=== PATIENT | female | born 1950 | race Caucasian/White ===

== ENCOUNTER 2020-09-06 11:12 | Outpatient (REF) | payer MEDICARE, SELFPAY ==
[2020-09-06 14:27] LABS: Estimated Average Glucose 108 mg/dL; Hemoglobin A1c % 5.4 %
[2020-09-06 14:49] LABS: Alanine Aminotransferase 24 U/L (0-31); Albumin Level 3.9 g/dL (3.5-5.0); Alkaline Phosphatase 105 U/L (39-117); Anion Gap 14 (12-20); Aspartate Amino Transferase 19 U/L (5-31); Bilirubin Total 0.7 mg/dL (0.0-1.0); Blood Urea Nitrogen 20 mg/dL (9-16); Calcium 8.5 mg/dL (8.4-10.2); Carbon Dioxide 25 mmol/L (22-29); Chloride 106 mmol/L (96-108); Cholesterol 147 mg/dL; Estimated Glomerular Filt Rate > 60; Glucose Fasting 99 mg/dL (60-99); HDL Cholesterol 54 mg/dL; LDL Cholesterol Calculated 64 mg/dl; Potassium 4.9 mmol/L (3.3-5.1); Sodium 140 mmol/L (135-145); Total Protein 6.4 g/dL (6.5-8.0); Triglycerides 147 mg/dL
[2020-09-06 15:01] LABS: Creatinine Urine 97.51 mg/dL; Microalbum/Creatinine Ratio Ur 12.3 ug/mg cr
[2020-09-06 15:10] LABS: TSH reflex Free T4 1.31 uIU/mL (0.32-4.0)
== END 2020-09-06 11:13 | disposition home or self-care (01) ==
LOC: HO.10HDL 11:12
PROVIDERS: Visit Provider Nurse Practitioner Family
DX: I10 Essential (primary) hypertension (principal); R73.01 Impaired fasting glucose
CPT/HCPCS: 36415; 80053; 80061; 82043; 83036; 84443

== ENCOUNTER 2020-10-19 11:35 | Emergency (ER) | payer MEDICARE, SELFPAY ==
--- NOTE | ~2020-10-19 | XR_ITS ---
EXAMINATION: XR CHEST CLINICAL INFORMATION: Cough. Likely Covid infection. COMPARISON: Previous chest x-ray April 2006 TECHNIQUE: Frontal view of the chest was obtained. FINDINGS: The cardiac and mediastinal contours are normal. The lungs are clear. There is no pleural effusion or pneumothorax. There are degenerative changes of the spine. XR/XR chest 1V IMPRESSION: No evidence for acute disease in the chest.
[2020-10-19 11:44] VITALS: BP 114/58; BP 132/90; PULSE 78; PULSE 81; RESP 18; TEMP 37.7; O2SAT 93; BMI 41.5
--- NOTE | 2020-10-19 12:08 | ED.GENADULT ---
HPI - General Adult General Chief complaint: General Medical Stated complaint: COUGH,WEAKNESS,FATIGUE,RECENT COVID VACC Time Seen by Provider: 10/19/20 12:08 Source: patient Mode of arrival: EMS Limitations: no limitations History of Present Illness HPI narrative: Patient with extreme fatigue and cough. Just feels so weak Onset (ago): day(s) Severity: moderate Relieving factors: none Associated symptoms: cough, fever/chills, nausea/vomiting and weakness Related Data Home Medications Medication Instructions Recorded Confirmed flu vacc [id number](65yr up)-PF 240 ml IM 06/07/20 10/05/20 mcg/0.7 mL intramuscular syringe Previous Rx's Medication Instructions Recorded atenolol 50 mg tablet 50 mg PO DAILY 90 Days #90 tab 08/10/20 atorvastatin 10 mg tablet 10 mg PO DAILY #90 tab 08/10/20 bupropion HCl 300 mg 24 hr tablet, 300 mg PO DAILY #90 tab 08/10/20 extended release fluticasone 500 mcg-salmeterol 50 1 inh INHALATION BID 90 Days #180 08/10/20 mcg/dose blistr powdr for units inhalation gabapentin 100 mg capsule 200 mg PO TID 90 Days #540 cap 08/10/20 lisinopril 10 mg tablet 10 mg PO DAILY #90 tab 08/10/20 umeclidinium 62.5 mcg/actuation 1 inh INHALATION DAILY 90 Days #30 08/10/20 blister powder for inhalation ea Allergies Allergy/AdvReac Type Severity Reaction Status Date / Time No Known Allergies Allergy Verified 10/19/20 11:44 Review of Systems Constitutional: Constitutional: Reports no additional constitutional complaints Eyes: Eyes: Reports no additional eye complaints ENT: Denies dizziness Cardiovascular: Cardiovascular: Reports no additional cardiovascular complaints Respiratory: Respiratory: Reports as per HPI Gastrointestinal: Gastrointestinal: Reports no additional gastrointestinal complaints Genitourinary: Genitourinary: Reports no additional female genitourinary complaints Musculoskeletal: Musculoskeletal: Reports no additional musculoskeletal complaints Integumentary/Breasts: Skin/Breast: Denies rash Neurologic: Reports system reviewed and no additional complaints, except as documented, Denies dizziness and Denies Sensory deficit (Neuro) Psychiatric: Psychiatric: Denies anxiety PMFSH Past Medical History Medical History COPD (chronic obstructive pulmonary disease) Surgical History History of total hysterectomy Hx of cholecystectomy Family History Family History Father No problems noted. Mother No problems noted. Sister No problems noted. Sister No problems noted. Son No problems noted. Daughter No problems noted. Social History Social History Alcohol intake: never Smoking Status: Never smoker Use of substances other than those prescribed or required for medical reasons: No Advance Directives: No Advance Directives Information Provided: Yes Physical Exam Vital Signs: Vital Signs: Last Vital Signs Temp 100.6 F H 10/19/20 14:00 Pulse 71 10/19/20 14:00 Resp 16 10/19/20 14:00 BP 104/79 10/19/20 14:00 Pulse Ox 93 10/19/20 14:00 Body Mass Index 41.5 Const: Nutritional Appearance: obese Orientation/consciousness: oriented to person and patient oriented x3 Limitations: no limitations HENMT: Head: Yes normal to inspection Ears: external ears normal General nose exam: Normal external nose present Mouth: Normal oral and palatal mucosa present and oropharynx normal Throat: Yes posterior oropharynx normal Eyes: General: appearance normal, both eyes and all related structures Neck: Other: supple Neck: Yes normal visual inspection Chest: Chest palpation & inspection: normal inspection of the chest Resp: Auscultation: clear to auscultation bilaterally Cardio: Jugular venous distension: no JVD Rate: regular rate Rhythm: regular rhythm Heart sounds: S1 normal heart sound present and S2 normal heart sound present GI: Inspection: Yes normal to inspection Palpation (GI): Soft to palpation, nontender and No hepatosplenomegaly present Auscultation: normal bowel sounds : General: Yes no CVA tenderness Back/Spine/Pelvis: Back: no CVA tenderness Skin: General skin exam: no rashes or lesions noted Neuro: General: oriented to person and patient oriented x3 Cranial nerves: Yes CN's II-XII intact bilaterally Motor exam (neuro): 5/5 motor strength present throughout Sensory Exam: No Sensory deficit (Neuro) Extrem: General: Yes normal to inspection Psych: Appearance: grossly normal Course Course Course Narrative: resting comfortably positive COVID, not hypoxic, xray negative Medical Decision Making MDM Narrative Medical decision making narrative: symptoms and testing consistent with COVID Lab Data Result diagrams: 10/19/20 13:34 10/19/20 13:34 Labs: Lab Results 10/19/20 10/19/20 10/19/20 Range/Units 13:34 13:34 13:36 WBC 3.6 L (4.8-10.8) X10*3/uL RBC 5.07 (4.20-5.50) X10*6/uL Hgb 14.2 (12.0-16.0) g/dl Hct 42.7 (37-47) % MCV 84.2 (80-98) fL MCH 28.0 (27.0-33.0) pg MCHC 33.3 (31.0-35.0) g/dl RDW 13.6 (11.0-16.0) % Plt Count 101 L (160-400) X10*3/uL MPV 11.7 (9.4-12.3) fL Immature Gran % (Auto) 1.9 H (0.0-0.4) % Neut % (Auto) 79.1 H (45-73) % Lymph % (Auto) 14.3 L (20-40) % [place] % (Auto) 4.4 (2-11) % Eos % (Auto) 0.0 (0-4) % Baso % (Auto) 0.3 (0-2) % Lymph # (Auto) 0.5 L (1.2-4.9) X10*3/uL [place] # (Auto) 0.2 (0.1-1.2) X10*3/uL Eos # (Auto) 0.0 (0.0-0.4) X10*3/uL Baso # (Auto) 0.0 (0.0-0.2) X10*3/uL Abs Immat Gran (auto) 0.07 H (0.00-0.03) X10*3/uL Absolute Neuts (auto) 2.9 (2.0-8.3) X10*3/uL Absolute Nucleated RBC 0.000 (0.0-0.012) X10*3/uL Nucleated RBC % (auto) 0.0 (0.0-0.2) /100WBC Smear Tech's Comments VERIFIED Sodium 133 L (135-145) mmol/L Potassium 4.2 (3.3-5.1) mmol/L Chloride 99 (96-108) mmol/L Carbon Dioxide 26 (22-29) mmol/L Anion Gap 12 (12-20) BUN 25 H (9-16) mg/dL Creatinine 0.79 (0.5-1.4) mg/dL Estim Creat Clear Calc 80.2 Estimated GFR > 60 Random Glucose 99 (60-115) mg/dL Calcium 7.8 L D (8.4-10.2) mg/dL Coronavirus (PCR) POSITIVE A (Negative) Influenza Type A (PCR) NEGATIVE (Negative) Influenza Type B (PCR) NEGATIVE (Negative) RSV RNA Qual (PCR) NEGATIVE (Negative) Discharge Plan Discharge Clinical Impression: 2019 novel coronavirus disease (COVID-19) Patient Disposition: Home, Self-Care Instructions: COVID-19 (Coronavirus Disease 2019) (ED) Additional Instructions: fluids as tolerated Prescriptions: No Action fluticasone propion-salmeterol [Advair Diskus] 500-50 mcg/dose blister with device 1 inh inhalation BID 90 Days Qty: 180 RF: 4 atenolol 50 mg tablet 50 mg PO DAILY 90 Days Qty: 90 RF: 2 atorvastatin 10 mg tablet 10 mg PO DAILY Qty: 90 RF: 1 bupropion HCl 300 mg tablet extended release 24 hr 300 mg PO DAILY Qty: 90 RF: 1 gabapentin 100 mg capsule 200 mg PO TID 90 Days Qty: 540 RF: 1 lisinopril 10 mg tablet 10 mg PO DAILY Qty: 90 RF: 1 Incruse Ellipta 62.5 mcg/actuation blister with device 1 inh inhalation DAILY 90 Days Qty: 30 RF: 5 Fluzone HighDose Quad 20-21 PF 240 mcg/0.7 mL syringe IM RF: 0 Referrals: Mckinley Hodges, [employer]PER[employer] SUPERVISOR-BC [Primary Care Provider] - 2 days
[2020-10-19 14:00] VITALS: BP 104/79; PULSE 71; RESP 16; TEMP 38.1; O2SAT 93
[2020-10-19 14:08] LABS: Basophils Percent Auto 0.3 % (0-2); Hematocrit 42.7 % (37-47); Hemoglobin 14.2 g/dl (12.0-16.0); Imm Gran Abs Auto 0.07 X10*3/uL (0.00-0.03); Imm Gran Pct Auto 1.9 % (0.0-0.4); Lymphocytes Absolute Auto 0.5 X10*3/uL (1.2-4.9); Lymphocytes Percent Auto 14.3 % (20-40); MANUAL DIFF FLAG SCAN; Mean Corpuscular HGB Conc 33.3 g/dl (31.0-35.0); Mean Corpuscular Volume 84.2 fL (80-98); Mean Platelet Volume 11.7 fL (9.4-12.3); Monocytes Absolute Auto 0.2 X10*3/uL (0.1-1.2); Monocytes Percent Auto 4.4 % (2-11); Neutrophils Absolute Auto 2.9 X10*3/uL (2.0-8.3); Neutrophils Percent Auto 79.1 % (45-73); Platelet Count 101 X10*3/uL (160-400); Red Blood Count 5.07 X10*6/uL (4.20-5.50); Red Cell Distribution Width 13.6 % (11.0-16.0); SCAN SMEAR FLAG 1; White Blood Count 3.6 X10*3/uL (4.8-10.8)
[2020-10-19 14:23] LABS: Anion Gap 12 (12-20); Blood Urea Nitrogen 25 mg/dL (9-16); Calcium 7.8 mg/dL (8.4-10.2); Carbon Dioxide 26 mmol/L (22-29); Chloride 99 mmol/L (96-108); Creatinine Clr Calc Pharmacy 80.2; Estimated Glomerular Filt Rate > 60; Glucose Random 99 mg/dL (60-115); Potassium 4.2 mmol/L (3.3-5.1); Sodium 133 mmol/L (135-145)
[2020-10-19 14:42] LABS: SLIDE REVIEW VERIFIED
[2020-10-19 14:55] LABS: Influenza A PCR NEGATIVE (Negative); Influenza B PCR NEGATIVE (Negative); Resp Syncy Virus RNA Qual PCR NEGATIVE (Negative); SARS COV2 PCR INHOUSE POSITIVE (Negative)
== END 2020-10-19 15:59 | disposition home or self-care (01) ==
PROVIDERS: Emergency Provider Emergency Medicine; PCP Nurse Practitioner Family
DX: U07.1 COVID-19 (principal); J44.9 Chronic obstructive pulmonary disease, unspecified
CPT/HCPCS: 0241U; 36415; 71045; 80048; 85025; 99283; 99284

== ENCOUNTER 2021-02-14 10:00 | Outpatient (REF) | payer MEDICARE, SELFPAY ==
--- NOTE | ~2021-02-14 | MM_ITS ---
EXAMINATION: MM SCREENING DIGITAL BREAST TOMOSYNTHESIS, BILATERAL CLINICAL INFORMATION: Screening. Asymptomatic. The lifetime risk of breast cancer based on the Tyrer-Cuzick Model is 5%. COMPARISON: Mammography: 09/18/2018, 02/12/2017, 12/08/2014 TECHNIQUE: Digital breast tomosynthesis is performed in both the craniocaudal and mediolateral oblique views along with computer-aided detection (CAD). Synthesized 2D images are generated from the tomosynthesis. Additional exaggerated left CC and left MLO views are provided. FINDINGS: The breasts are almost entirely fatty (ACR BI-RADS breast composition Category a). There are no significant masses, abnormal calcifications, or other abnormalities. Background stromal markings are stable. The axilla are unremarkable. There are some dermal lesions overlying the posterior inferior left breast and two small dermal lesions overlying the posterior right breast. MM/MM tomosynthesis screening BI IMPRESSION: No mammographic evidence of malignancy. ASSESSMENT: BI-RADS 2: Benign RECOMMENDATION: Routine annual mammography screening. This patient's information was entered into a reminder system with a target due date for their next mammogram.
== END 2021-02-14 10:01 | disposition home or self-care (01) ==
LOC: HO.MAMMO 10:00
PROVIDERS: PCP Nurse Practitioner Family; Visit Provider Nurse Practitioner Family
DX: Z12.31 Encounter for screening mammogram for malignant neoplasm of breast (principal)
CPT/HCPCS: 77063; 77067

== ENCOUNTER 2021-03-07 09:17 | Outpatient (REF) | payer MEDICARE, SELFPAY ==
[2021-03-07 10:55] LABS: Alanine Aminotransferase 22 U/L (0-31); Albumin Level 3.8 g/dL (3.5-5.0); Alkaline Phosphatase 90 U/L (39-117); Anion Gap 13 (12-20); Aspartate Amino Transferase 16 U/L (5-31); Bilirubin Total 0.5 mg/dL (0.0-1.0); Blood Urea Nitrogen 18 mg/dL (9-16); Carbon Dioxide 26 mmol/L (22-29); Chloride 107 mmol/L (96-108); Cholesterol 146 mg/dL; Estimated Glomerular Filt Rate > 60; Glucose Fasting 105 mg/dL (60-99); HDL Cholesterol 60 mg/dL; LDL Cholesterol Calculated 61 mg/dl; Potassium 4.6 mmol/L (3.3-5.1); Sodium 141 mmol/L (135-145); Total Protein 6.3 g/dL (6.5-8.0); Triglycerides 127 mg/dL
[2021-03-07 11:03] LABS: Glucose Urine UA NEG (NEG); Leukocyte Esterase Urine NEG (NEG); Nitrite Urine NEG (NEG); PH 5.5 (5.0-8.0); Urine Blood NEG (NEG); Urine Ketones NEG (NEG); Urine Protein NEG (NEG-TRACE)
[2021-03-07 11:11] LABS: Appearance Urine HAZY; Color Urine YELLOW
[2021-03-07 11:18] LABS: TSH reflex Free T4 3.03 uIU/mL (0.32-4.0)
== END 2021-03-07 09:18 | disposition home or self-care (01) ==
LOC: HO.10HDL 09:17
PROVIDERS: Visit Provider Nurse Practitioner Family
DX: Z00.00 Encounter for general adult medical examination without abnormal findings (principal)
CPT/HCPCS: 36415; 80053; 80061; 81003; 84443

== ENCOUNTER 2021-04-28 10:14 | Outpatient (REF) | payer MEDICARE, SELFPAY ==
--- NOTE | ~2021-04-28 | MR_ITS ---
EXAMINATION: MRI ANKLE WITHOUT CONTRAST, RIGHT CLINICAL INFORMATION: Right Achilles strain. COMPARISON: None. TECHNIQUE: MRI without contrast is performed on the right ankle. FINDINGS: The Achilles tendon is diffusely thickened with surrounding edema which extends throughout Kager's fat pad. At the calcaneal insertion, there is minimal interstitial/undersurface partial tearing, as well as retrocalcaneal bursitis and an insertional enthesophyte. There is irregular longitudinal partial-thickness split tearing of the peroneal brevis tendon posterior to the distal fibula. Minimal interstitial tearing extends distally, superficial to a prominent lateral osteophyte of the distal calcaneus, to the insertion onto the base of the 5th metatarsal. The peroneal longus tendon appears intact. Peroneal tenosynovitis. The posterior tibialis tendon, flexor and extensor tendons appear otherwise intact. There is thickening of the plantar fascia with a large heel spur. No tear. The anterior talofibular ligament is attenuated likely representing a remote sprain. Ankle ligaments are otherwise unremarkable. There are mild degenerative changes of the tibiotalar joint including a small subchondral cyst of the tibia anteriorly and small osteophytes. No significant joint effusion. [id number] degenerative changes across the Lisfranc joints, particularly the 1st and 2nd TMT joints and dorsally at the junction of the 2nd and 3rd metatarsal bases. MR/MR ankle RT wo con IMPRESSION: Moderate chronic Achilles tendinopathy with peritendinitis, minimal interstitial/undersurface partial tearing at the calcaneal insertion with retrocalcaneal bursitis. Longitudinal partial tearing of the peroneal brevis tendon with tenosynovitis. Degenerative changes as described, most prominent at the 1st and 2nd TMT joints and at the dorsal junction of the 2nd and 3rd metatarsal bases. Chronic plantar fasciitis with a large heel spur.
== END 2021-04-28 10:15 | disposition home or self-care (01) ==
LOC: HO.MRI 10:14
PROVIDERS: PCP Nurse Practitioner Family; Visit Provider Nurse Practitioner Family
DX: S86.011A Strain of right Achilles tendon, initial encounter (principal)
CPT/HCPCS: 73721

== ENCOUNTER 2021-09-06 09:58 | Outpatient (REF) | payer MEDICARE, SELFPAY ==
[2021-09-06 13:50] LABS: Appearance Urine CLEAR; Color Urine YELLOW; Glucose Urine UA NEG (NEG); Leukocyte Esterase Urine NEG (NEG); Nitrite Urine NEG (NEG); Specific Gravity - Urine 1.025 (1.005-1.025); Urine Blood NEG (NEG); Urine Ketones NEG (NEG); Urine Protein NEG (NEG-TRACE)
[2021-09-06 13:53] LABS: Alanine Aminotransferase 20 U/L (0-31); Albumin Level 3.9 g/dL (3.5-5.0); Alkaline Phosphatase 107 U/L (39-117); Anion Gap 12 (12-20); Aspartate Amino Transferase 17 U/L (5-31); Bilirubin Total 0.4 mg/dL (0.0-1.0); Blood Urea Nitrogen 19 mg/dL (9-16); Calcium 9.1 mg/dL (8.4-10.2); Carbon Dioxide 26 mmol/L (22-29); Chloride 105 mmol/L (96-108); Cholesterol 148 mg/dL; Estimated Glomerular Filt Rate > 60; Glucose Fasting 120 mg/dL (60-99); HDL Cholesterol 48 mg/dL; LDL Cholesterol Calculated 70 mg/dl; Potassium 4.3 mmol/L (3.3-5.1); Sodium 139 mmol/L (135-145); Total Protein 6.4 g/dL (6.5-8.0); Triglycerides 153 mg/dL
[2021-09-06 14:16] LABS: TSH reflex Free T4 1.94 uIU/mL (0.32-4.0)
== END 2021-09-06 09:59 | disposition home or self-care (01) ==
LOC: HO.10HDL 09:58
PROVIDERS: Visit Provider Nurse Practitioner Family
DX: I10 Essential (primary) hypertension (principal); R73.01 Impaired fasting glucose
CPT/HCPCS: 36415; 80053; 80061; 81003; 84443

== ENCOUNTER 2022-02-15 08:26 | Outpatient (REF) | payer MEDICARE, SELFPAY ==
--- NOTE | ~2022-02-15 | MM_ITS ---
EXAMINATION: MM SCREENING DIGITAL BREAST TOMOSYNTHESIS, BILATERAL CLINICAL INFORMATION: Screening. Asymptomatic. Family history breast cancer, mother. The lifetime risk of breast cancer based on the Tyrer-Cuzick Model is 6%. COMPARISON: Mammography: 02/14/2021, 09/18/2018, 02/12/2017 TECHNIQUE: Digital breast tomosynthesis is performed in both the craniocaudal and mediolateral oblique views along with computer-aided detection (CAD). Synthesized 2D images are generated from the tomosynthesis. Additional left CC view is provided. FINDINGS: The breasts are almost entirely fatty (ACR BI-RADS breast composition Category a). Stromal markings are normal. No interval mass or developing density or architectural abnormality. No abnormal calcifications. The axilla are unremarkable. No significant changes. MM/MM tomosynthesis screening BI IMPRESSION: No mammographic evidence of malignancy. ASSESSMENT: BI-RADS 1: Negative RECOMMENDATION: Routine annual mammography screening. This patient's information was entered into a reminder system with a target due date for their next mammogram.
--- NOTE | ~2022-02-15 | MM_ITS ---
EXAMINATION: BONE DENSITOMETRY CLINICAL INDICATION: Menopause. COMPARISON: Baseline BD dated 11/02/2008. TECHNIQUE: Using a [employer] DXA System (software version: 13.1) manufactured by [employer], dual-energy x-ray absorptiometry was performed of the lumbar spine and left hip. The images are of good technical quality. Summary results are attached. FINDINGS: AP SPINE L1-L2 (excluding L3 and L4): The data of L1-L4 has been changed to exclude the L3 and L4 vertebral bodies, because degenerative changes at these levels may cause overestimation of lumbar spine density. Current: BMD 1.179 g/cm2, Z-score 0.6, T-score 0.1, normal, 1.3% increase from baseline (<5% change is not significant). Baseline: BMD 1.164 g/cm2. LEFT FEMUR, NECK: Current: BMD 0.964 g/cm2, Z-score 0.5, T-score -0.5, normal. Baseline: BMD 0.969 g/cm2. LEFT FEMUR, TOTAL: Current: BMD 1.021 g/cm2, Z-score 0.8, T-score 0.1, normal, 12.3% decrease from baseline (<5% change is not significant). Baseline: BMD 1.164 g/cm2. IDENTIFIED RISK FACTORS: Menopause, hysterectomy, bilateral oophorectomy. HISTORY OF FRACTURE: None listed. MEDICATIONS: Vitamin D. MM/XR DEXA axial skeleton IMPRESSION: 1. DIAGNOSIS: Normal bone density based on the lowest T-score value of -0.5 in the femoral neck applying World Health Organization criteria. 2. 10-YEAR FRACTURE RISK PREDICTION, FRAX: According to the guidelines, FRAX calculation should only be performed on patients in the osteopenia bone density category. Therefore, FRAX was not performed on this patient. 3. Treatment Recommendations: NOF guidelines recommend consideration for treatment in postmenopausal women and men age 50 and older presenting with the following: -A hip or vertebral (clinical or morphometric) fracture. -T-score less than or equal to -2.5 at the femoral neck or spine after appropriate evaluation to exclude secondary causes. -Low bone mass at the hip or spine and a 10-year fracture probability by FRAX of greater than or equal to 3% for hip fracture or greater than or equal to 20% for major osteoporotic fracture based on the [place] adapted WHO algorithm. 4. Other Recommendations: All treatment decisions require clinical judgment and consideration of individual patient factors, including patient preferences, comorbidities, previous drug use, risk factors not captured in the FRAX model (e.g. frailty, falls, vitamin D deficiency, increased bone turnover, interval significant decline in bone density) and possible under or overestimation of fracture risk by FRAX. FUTURE SCAN RECOMMENDATION: People with diagnosed cases of osteoporosis or at high risk for fracture should have regular bone mineral density tests. For patients eligible for Medicare, routine testing is allowed once every 2 years. The testing frequency can be increased to one year for patients who have rapidly progressing disease, those who are receiving or discontinuing medical therapy to restore bone mass, or have additional risk factors.
== END 2022-02-15 08:27 | disposition home or self-care (01) ==
LOC: HO.MAMMO 08:26
PROVIDERS: PCP Nurse Practitioner Family; Visit Provider Nurse Practitioner Family
DX: Z12.31 Encounter for screening mammogram for malignant neoplasm of breast (principal); Z13.820 Encounter for screening for osteoporosis; Z78.0 Asymptomatic menopausal state
CPT/HCPCS: 77063; 77067; 77080

== ENCOUNTER 2022-03-24 07:53 | Outpatient (REF) | payer MEDICARE, SELFPAY ==
[2022-03-24 10:42] LABS: Appearance Urine Clear; Color Urine Yellow; Glucose Urine UA Negative (Negative); Leukocyte Esterase Urine Negative (Negative); Nitrite Urine Negative (Negative); PH 5.5 (5.0-9.0); Specific Gravity - Urine 1.015 (1.005-1.025); Urine Blood Negative (Negative); Urine Ketones Negative (Negative); Urine Protein Negative (Neg-Trace)
[2022-03-24 11:00] LABS: MANUAL DIFF FLAG NO
[2022-03-24 11:04] LABS: Basophils Percent Auto 0.6 % (0-2); Eosinophils Absolute Auto 0.1 X10*3/uL (0.0-0.4); Eosinophils Percent Auto 1.6 % (0-4); Hematocrit 41.1 % (37.0-47.0); Hemoglobin 13.6 g/dl (12.0-16.0); Imm Gran Abs Auto 0.04 X10*3/uL (0.00-0.03); Imm Gran Pct Auto 0.8 % (0.0-0.4); Lymphocytes Absolute Auto 1.3 X10*3/uL (1.2-4.9); Lymphocytes Percent Auto 25.4 % (20-40); Mean Corpuscular HGB Conc 33.1 g/dl (31.0-35.0); Mean Corpuscular Hemoglobin 28.8 pg (27.0-33.0); Mean Corpuscular Volume 87.1 fL (80.0-98.0); Mean Platelet Volume 12.2 fL (9.4-12.3); Monocytes Absolute Auto 0.4 X10*3/uL (0.1-1.2); Monocytes Percent Auto 7.3 % (2-11); Neutrophils Absolute Auto 3.2 x10*3/uL (2.0-8.3); Neutrophils Percent Auto 64.3 % (45-73); Platelet Count 159 X10*3/uL (160-400); Red Blood Count 4.72 X10*6/uL (4.20-5.50)
[2022-03-24 11:24] LABS: Alanine Aminotransferase 28 U/L (0-31); Albumin Level 3.8 g/dL (3.5-5.0); Alkaline Phosphatase 92 U/L (39-117); Anion Gap 15 (12-20); Aspartate Amino Transferase 28 U/L (5-31); Bilirubin Total 0.5 mg/dL (0.0-1.0); Blood Urea Nitrogen 15 mg/dL (9-16); Calcium 9.1 mg/dL (8.4-10.2); Carbon Dioxide 27 mmol/L (22-29); Chloride 105 mmol/L (96-108); Cholesterol 139 mg/dL; Estimated Glomerular Filt Rate > 60; Glucose Fasting 107 mg/dL (60-99); HDL Cholesterol 54 mg/dL; LDL Cholesterol Calculated 62 mg/dl; Potassium 4.5 mmol/L (3.3-5.1); Sodium 142 mmol/L (135-145); Total Protein 6.2 g/dL (6.5-8.0); Triglycerides 118 mg/dL
[2022-03-24 11:48] LABS: TSH reflex Free T4 2.15 uIU/mL (0.32-4.0); Vitamin D 25-OH Total 30.6 ng/mL (>30)
== END 2022-03-24 07:54 | disposition home or self-care (01) ==
LOC: HO.10HDL 07:53
PROVIDERS: Visit Provider Nurse Practitioner Family
DX: I10 Essential (primary) hypertension (principal); Z78.0 Asymptomatic menopausal state
CPT/HCPCS: 36415; 80053; 80061; 81003; 82306; 84443; 85025

== ENCOUNTER → 2022-05-25 10:09 | Outpatient (REF) | payer MEDICARE, SELFPAY ==
--- NOTE | 2022-05-25 10:12 | CA_ITS ---
Transthoracic Echocardiogram Patient (Last, First, Middle): Saundra Tripp, Gender: Female Date of : 1950 Age: 71 Procedure Date: 05/25/2022 Procedure Type: Transthoracic Echocardiogram Location: OP Height: 162.56 cm Weight: 107.5 kg BSA: 2.10 m2 Heart Rate: bpm BP: 140 / 70 mmHg [place] [employer] Supervisor: TO Referring MD: Mckinley Hodges [facility]- Symptoms: M79.89 - Other specified soft tissue disorders Study Quality: Technically Difficult/Contrast Conclusions: - 1. Technically limited study despite use of contrast agent 2. Normal LV systolic function with impaired relaxation filling pattern 3. Limited visualization of cardiac valves with normal cardiac valvular Dopplers Findings Procedure Information Contrast agent, definity, is being given per protocol without apparent complications. The quality of the study was technically difficult. Left Ventricle Normal left ventricular size, thickness, and systolic function. The visually estimated ejection fraction is between 60-65%. Spectral Doppler is indicative of an impaired relaxation filling pattern. Right Ventricle The right ventricle was not well visualized. Atria The left atrium was not well visualized. Interatrial shunt cannot be excluded. The right atrium was not well visualized. Aortic Valve The aortic valve was not well visualized. There is no aortic valve stenosis. There is no aortic valve regurgitation. Mitral Valve The mitral valve was not well visualized. There is trace mitral valve regurgitation. There is no mitral valve stenosis. Pulmonic Valve The pulmonic valve was not well visualized. Tricuspid Valve The tricuspid valve was not well visualized. Great Vessels The aorta was not well visualized. The pulmonary artery was not well visualized. Venous The inferior vena cava was not well visualized. Pericardium/Pleural The pericardium was not well visualized. Prior Study Comparison no significant change in LV systolic function Measurements 2D Linear Measurements IVSd: 1.14 0.6-0.9/0.6-1.0 cm LVIDd: 4.30 3.9-5.3/4.2-5.9 cm LVIDd Index: 2.05 2.4-3.2/2.2-3.1 cm/m2 LVIDs: 2.91 2.0-3.6 cm LVPWd: 0.96 0.7-1.1 cm LA Diam: 3.80 2.7-3.8/3.0-4.0 cm LAIDs Index: 1.81 1.5-2.3 cm/m2 LV Mass: 189.30 67-162/88-224 g LV Mass Index: 90.14 43-95/49-115 g/m2 LVOT Diam: 1.90 3.0+(-)1.3 cm 2D Systolic Function EF 4C: 67.30 >55% Mitral Valve MV VTI: 0.33 MV Pk Parminder: 0.82 MV Mn Parminder: 0.51 MV Pk Grad: 3.00 MV Mn Grad: 1.00 MV Pk E: 0.67 MV PK A: 0.69 MV Decel Time: 280.00 E/A: 1.00 E'Lateral: 7.29 E'Medial: 4.46 E/E' Med: 15.00 E/E' Lat: 9.20 PHT: 82.00 MVA PHT: 2.68 MVA Continuity: 2.26 Decel Miller: 2.39 Aortic Valve AoV Pk Parminder: 1.31 AoV Mn Parminder: 0.94 AoV VTI: 0.31 AoV Pk Grad: 7.00 Aov Mn Grad: 4.00 RICO Cont.VTI: 2.39 LVOT LVOT Pk Parminder: 1.06 LVOT Mn Parminder: 0.70 LVOT VTI: 0.26 LVOT Pk Grad: 4.00 LVOT Mn Grad: 2.00 LVOT Diam: 1.90 LVOT Area: 2.84 Diastolic Function MV Pk E: 0.67 MV Pk A: 0.69 E/A: 1.00 E'Medial: 4.46 E/E' Med: 15.00 E' Laterial: 7.29 E/E' Lat: 9.20 Right Ventricle TAPSE (mm): 2.65 TVS' Parminder: 11.20 Tricuspid Valve TR Pk Parminder: 1.62 TR Pk Grad: 10.00 Great Vessels Aorta Sinus of Valsalva: 2.56 2.0-3.[address] [place]: 2.15 1.7-3.4 cm Ao Asc: 2.40 2.1-3.4 cm Updated in Other Vendor System with Status of Final Darwin Lewis MD electronically signed on 05/26/2022 2:50:56 PM with status of Final
== END ==
LOC: HO.CARD 10:09
PROVIDERS: Visit Provider Nurse Practitioner Family
DX: I10 Essential (primary) hypertension (principal); M79.89 Other specified soft tissue disorders
CPT/HCPCS: 93306; Q9957

== ENCOUNTER 2022-07-26 11:00 | Outpatient (REF) | payer MEDICARE, SELFPAY ==
[2022-07-26 14:01] LABS: Appearance Urine Cloudy; Color Urine Yellow; Glucose Urine UA Negative (Negative); Leukocyte Esterase Urine Trace (Negative); Nitrite Urine Positive (Negative); PH 5.5 (5.0-9.0); UMIC TRIGGER UACC YES; Urine Blood Negative (Negative); Urine Ketones Negative (Negative); Urine Protein Negative (Neg-Trace)
[2022-07-26 14:01] LABS: MANUAL DIFF FLAG NO
[2022-07-26 14:05] LABS: Bacteria Urine 4+ (None Seen); Hyaline Casts Urine 0-2 /LPF (0-2); RBC Urine 0-2 /HPF (0-2); UACC Culture Trigger YES
[2022-07-26 14:06] LABS: Basophils Percent Auto 0.4 % (0-2); Eosinophils Percent Auto 0.2 % (0-4); Hematocrit 40.4 % (37.0-47.0); Hemoglobin 13.2 g/dl (12.0-16.0); Imm Gran Abs Auto 0.04 X10*3/uL (0.00-0.03); Imm Gran Pct Auto 0.8 % (0.0-0.4); Lymphocytes Percent Auto 19.8 % (20-40); Mean Corpuscular HGB Conc 32.7 g/dl (31.0-35.0); Mean Corpuscular Hemoglobin 28.3 pg (27.0-33.0); Mean Corpuscular Volume 86.5 fL (80.0-98.0); Mean Platelet Volume 11.9 fL (9.4-12.3); Monocytes Absolute Auto 0.4 X10*3/uL (0.1-1.2); Monocytes Percent Auto 7.2 % (2-11); Neutrophils Absolute Auto 3.6 x10*3/uL (2.0-8.3); Neutrophils Percent Auto 71.6 % (45-73); Platelet Count 140 X10*3/uL (160-400); Red Blood Count 4.67 X10*6/uL (4.20-5.50); Red Cell Distribution Width 14.2 % (11.0-16.0)
[2022-07-26 14:34] LABS: Alanine Aminotransferase 18 U/L (0-31); Albumin Level 3.8 g/dL (3.5-5.0); Alkaline Phosphatase 105 U/L (39-117); Anion Gap 11 (12-20); Aspartate Amino Transferase 17 U/L (5-31); Bilirubin Total 0.6 mg/dL (0.0-1.0); Blood Urea Nitrogen 23 mg/dL (9-16); Calcium 8.9 mg/dL (8.4-10.2); Carbon Dioxide 28 mmol/L (22-29); Chloride 103 mmol/L (96-108); Cholesterol 141 mg/dL; Estimated Glomerular Filt Rate 50; Glucose Fasting 126 mg/dL (60-99); HDL Cholesterol 38 mg/dL; LDL Cholesterol Calculated 76 mg/dl; Sodium 138 mmol/L (135-145); Total Protein 6.3 g/dL (6.5-8.0); Triglycerides 136 mg/dL
[2022-07-26 14:35] LABS: B Type Natriuretic Peptide 13 pg/mL (<100)
[2022-07-26 14:41] LABS: TSH reflex Free T4 1.82 uIU/mL (0.32-4.0); Vitamin D 25-OH Total 36.6 ng/mL (>30)
== END 2022-07-26 11:01 | disposition home or self-care (01) ==
LOC: HO.HMGCLDS 11:00
PROVIDERS: PCP Nurse Practitioner Family; Visit Provider Nurse Practitioner Family
DX: I10 Essential (primary) hypertension (principal); M79.89 Other specified soft tissue disorders; Z78.0 Asymptomatic menopausal state
CPT/HCPCS: 36415; 80053; 80061; 81001; 81003; 82306; 83880; 84443; 85025; 87086; 87088; 87186

== ENCOUNTER 2022-08-07 14:19 | Outpatient (REF) | payer MEDICARE, SELFPAY | END 2022-08-07 14:20 | disposition home or self-care (01) | LOC: HO.LNP 14:19 | PROVIDERS: Visit Provider Physician Assistant | DX: L02.91 Cutaneous abscess, unspecified (principal) | CPT/HCPCS: 87070; 87205 ==

== ENCOUNTER 2023-03-28 09:49 | Outpatient (AMB) | payer MEDICARE, SELFPAY ==
[2023-03-28 10:09] VITALS: BP 140/78; PULSE 57; O2SAT 98; BMI 41.6
--- NOTE | 2023-03-28 10:09 | A.OFFPC_ITS ---
Vital Signs 03/28/23 10:09 Height 5 ft 4 in Weight 242 lb 8 oz BMI 41.6 BP 140/78 H Blood Pressure Location Rt brachial Position Sitting Pulse 57 Pulse Source Pulse Oximeter Pulse Oximetry (%) 98 Oxygen Delivery Method Room Air Intake Visit Reasons: 3 Month follow up Allergies No Known Allergies Allergy (Verified 03/28/23 10:11) Medication List - Last Reconciled 03/28/23 by PRANAY Angel albuterol sulfate 90 mcg/actuation 1 inh inhalation QID PRN atenolol 50 mg PO DAILY atorvastatin 10 mg PO DAILY bupropion HCl 300 mg PO DAILY buspirone 7.5 mg PO ONCE PRN 90 days chlorthalidone 25 mg PO DAILY cholecalciferol (vitamin D3) 25 mcg PO DAILY diclofenac sodium 1% 4 grams topical QID docusate sodium (Stool Softener) 50 mg PO DAILY fluticasone propion-salmeterol 500-50 mcg/dose (Wixela Inhub) 1 inh inhalation BID 90 days gabapentin 200 mg (2 x 100 mg) PO TID 90 days lisinopril 30 mg PO DAILY 90 days naproxen 250 mg PO BID PRN Tobacco use date assessed: 03/28/23 Fall risk assessment: 2 + Falls in past year Last assessed Fall Risk: 03/28/23 Dental Screening Dental Screen Date: 03/28/23 Did you have a dental visit in the last 12 months?: Yes Did you have a dental problem in the last 6 months where you did not have access to dental care?: No Was dental information given to patient?: Patient has dentist HPI 3 Month follow up HPI Details HTN: Blood pressure is managed with atenolol 50mg, chlorthalidone 25mg, and lisinopril 30mg. Pt's blood pressure has been stable at home, in the 130s/70s-80s. Denies chest pain, shortness of breath, headache, dizziness, and blurred vision. Pt is bradycardic today, will decrease atenolol from 50mg to 25mg. Will also increase lisinopril from 30mg to 40mg. [facility] Medical History Bilateral Achilles tendonosis COPD (chronic obstructive pulmonary disease) Surgical History History of total hysterectomy Hx of cholecystectomy Family History Father No problems noted. Mother No problems noted. Sister No problems noted. Sister No problems noted. Son No problems noted. Daughter No problems noted. Social History Household Members: Spouse Housing: House Alcohol intake: never Patient Tobacco Use Status: Former Tobacco user Years Smoked: 14 years ago e-Cigarette/Vaping Use: Never Used Second Hand Smoke Exposure: No service: No Current occupational status: retired Cognitive needs: No Hearing needs: No Vision needs: No Questionnaire Thrive Questionnaire Date Thrive assessed: 09/12/22 ANNELISE-7 AMB Questionnaire ANNELISE-7 Date ANNELISE - 7 assessed: 09/12/22 Source: Developed by Drs. Beto Mclean, Flora Adams, Alf Victor and colleagues, with an educational ana maria from [employer]. Review of Systems Const Reports as per HPI Physical exam (Primary Care) Vital Signs: Last Vital Signs Pulse 57 03/28/23 10:09 BP 140/78 H 03/28/23 10:09 Pulse Ox 98 03/28/23 10:09 Oxygen Delivery Method Room Air 03/28/23 10:09 BMI result Body Mass Index 41.6 Tobacco/Smoking Status: Tobacco use Status Tobacco use date assessed 03/28/23 03/28/23 10:15 Patient Tobacco Use Status Former Tobacco user 03/28/23 10:15 e-Cigarette/Vaping Use Never Used 03/28/23 10:15 Thrive Assessment: Date of Thrive Assessment Date Thrive assessed 09/12/22 03/28/23 10:15 Const General: cooperative Nutritional Appearance: obese morbidly obese Orientation/consciousness: patient oriented x3 Resp Effort & Inspection: normal respiratory effort Auscultation: clear to auscultation bilaterally Cardio Rate: bradycardic Rhythm: regular rhythm Heart sounds: S1 normal heart sound present and S2 normal heart sound present Neuro General: patient oriented x3 Extrem Right lower extremity: edema ((baseline)) Details: pitting and 1+ Left lower extremity: no edema Psych Appearance: grossly normal Mental Status: mental status grossly normal Speech and movement: Normal speech and movement present Affect: normal affect Attitude: cooperative Thought process: Normal thought process present Thought content: Normal thought content present Insight: Good insight present (Psych) Judgement: Good judgement present (Psych) Assessment and Plan Assessment & Plan (1) HTN (hypertension): Code(s): I10 - Essential (primary) hypertension Plan The patient agreed to the use of a medical insurance clerk for this encounter. Scribed for PRANAY Johnson by Carlyn Daniels medical insurance clerk, on 03/28/2023 at 10:25 EST. Orders: Orders AMB EKG-In Office Today I10 - Essential (primary) hypertension MM screening mammo BI Today Z12.31 - Encounter for screening mammogram for malignant neoplasm of breast Medications: Changed From lisinopril 30 mg PO DAILY 90 days 90 tabs 1RF To lisinopril 40 mg PO DAILY 90 tabs 1RF 90 days From atenolol 50 mg PO DAILY 90 tabs 1RF To atenolol 25 mg PO DAILY 90 tabs 1RF Coding Level of Care Code Est Pt Level 3 (38046) Diagnoses HTN (hypertension) I10
== END 2023-03-28 11:18 | disposition home or self-care (01) ==
PROVIDERS: PCP Nurse Practitioner Family; Visit Provider Nurse Practitioner Family
DX: I10 Essential (primary) hypertension (principal)
CPT/HCPCS: 99213

== ENCOUNTER 2023-04-25 08:21 | Outpatient (REF) | payer MEDICARE, SELFPAY ==
[2023-04-25 11:09] LABS: MANUAL DIFF FLAG NO
[2023-04-25 11:14] LABS: Appearance Urine Cloudy; Color Urine Yellow; Glucose Urine UA Negative (Negative); Leukocyte Esterase Urine Large (3+) (Negative); Nitrite Urine Negative (Negative); PH 5.5 (5.0-9.0); Specific Gravity - Urine 1.015 (1.005-1.025); UMIC TRIGGER UACC YES; Urine Blood Trace (Negative); Urine Ketones Negative (Negative); Urine Protein Negative (Neg-Trace)
[2023-04-25 11:17] LABS: Bacteria Urine 4+ (None Seen); Hyaline Casts Urine 0-2 /LPF (0-2); RBC Urine 0-2 /HPF (0-2); UACC Culture Trigger YES; WBC Urine >50 /HPF (0-5)
[2023-04-25 11:23] LABS: Basophils Absolute Auto 0.1 X10*3/uL (0.0-0.2); Basophils Percent Auto 0.9 % (0-2); Eosinophils Absolute Auto 0.1 X10*3/uL (0.0-0.4); Eosinophils Percent Auto 1.8 % (0-4); Hematocrit 41.4 % (37.0-47.0); Hemoglobin 13.4 g/dl (12.0-16.0); Imm Gran Abs Auto 0.07 X10*3/uL (0.00-0.03); Lymphocytes Absolute Auto 1.7 X10*3/uL (1.2-4.9); Lymphocytes Percent Auto 24.9 % (20-40); Mean Corpuscular HGB Conc 32.4 g/dl (31.0-35.0); Mean Corpuscular Volume 89.6 fL (80.0-98.0); Mean Platelet Volume 11.8 fL (9.4-12.3); Monocytes Absolute Auto 0.5 X10*3/uL (0.1-1.2); Monocytes Percent Auto 7.3 % (2-11); Neutrophils Absolute Auto 4.4 x10*3/uL (2.0-8.3); Neutrophils Percent Auto 64.1 % (45-73); Platelet Count 172 X10*3/uL (160-400); Red Blood Count 4.62 X10*6/uL (4.20-5.50); White Blood Count 6.8 X10*3/uL (4.8-10.8)
[2023-04-25 11:48] LABS: Alanine Aminotransferase 21 U/L (0-31); Albumin Level 3.9 g/dL (3.5-5.0); Alkaline Phosphatase 91 U/L (39-117); Anion Gap 15 (12-20); Aspartate Amino Transferase 19 U/L (5-31); Bilirubin Total 0.4 mg/dL (0.0-1.0); Blood Urea Nitrogen 39 mg/dL (9-16); Calcium 9.9 mg/dL (8.4-10.2); Carbon Dioxide 26 mmol/L (22-29); Chloride 106 mmol/L (96-108); Cholesterol 156 mg/dL (<200); Estimated Glomerular Filt Rate 45; Glucose Fasting 105 mg/dL (60-99); HDL Cholesterol 58 mg/dL (>40); LDL Cholesterol Calculated 67 mg/dL (<100); Potassium 4.6 mmol/L (3.3-5.1); Sodium 142 mmol/L (135-145); Triglycerides 159 mg/dL (<150)
[2023-04-25 11:54] LABS: TSH reflex Free T4 2.05 uIU/mL (0.32-4.0)
== END 2023-04-25 08:22 | disposition home or self-care (01) ==
LOC: HO.HMGCLDS 08:21
PROVIDERS: PCP Nurse Practitioner Family; Visit Provider Nurse Practitioner Family
DX: I10 Essential (primary) hypertension (principal); R82.90 Unspecified abnormal findings in urine
CPT/HCPCS: 36415; 80053; 80061; 81001; 84443; 85025; 87086; 87088; 87186

== ENCOUNTER 2023-08-06 09:37 | Outpatient (AMB) | payer MEDICARE, SELFPAY ==
[2023-08-06 10:10] VITALS: BP 140/72; PULSE 82; O2SAT 97; BMI 40.9
--- NOTE | 2023-08-06 10:10 | MHC.PC.OV ---
Vital Signs 08/06/23 10:10 Height 5 ft 4 in Weight 238 lb 6 oz BMI 40.9 BP 140/72 H Blood Pressure Location Rt brachial Position Sitting Pulse 82 Pulse Source Pulse Oximeter Pulse Oximetry (%) 97 Oxygen Delivery Method Room Air Intake Visit Reasons: 4 month fu Intake Note: pt is here for a 4 month follow up for HTN Allergies No Known Allergies Allergy (Verified 08/06/23 10:13) Tobacco use date assessed: 08/06/23 Fall risk assessment: No Falls in past year Last assessed Fall Risk: 08/06/23 Dental Screening Dental Screen Date: 08/06/23 Did you have a dental visit in the last 12 months?: Yes Did you have a dental problem in the last 6 months where you did not have access to dental care?: No Was dental information given to patient?: Patient has dentist HPI 4 month fu HPI Details HTN: Blood pressure is managed with atenolol 25mg, chlorthalidone 25mg, and lisinopril 40mg. Pt's blood pressure at home is stable, more stable at home. Pt does report when she has elevated BPs, she is nervous, further describing anxiety. Denies chest pain, shortness of breath, headache, dizziness, and blurred vision. Anxiety: Pt is currently taking bupropion 300mg and buspirone 7.5mg. She reports doing well. Denies any SI and HI. PT does not want a therapist. We went over ways to stop mind racing / racing thoughts . [facility] Medical History Bilateral Achilles tendonosis COPD (chronic obstructive pulmonary disease) Surgical History History of total hysterectomy Hx of cholecystectomy Family History Father No problems noted. Mother No problems noted. Sister No problems noted. Sister No problems noted. Son No problems noted. Daughter No problems noted. Social History Household Members: Spouse Housing: House Alcohol intake: never Patient Tobacco Use Status: Former Tobacco user Years Smoked: 14 years ago e-Cigarette/Vaping Use: Never Used Second Hand Smoke Exposure: No service: No Current occupational status: retired Cognitive needs: No Hearing needs: No Vision needs: No Questionnaire PHQ-9 Over the last 2 weeks, how often have you been bothered by any of the following problems? 1. Little interest or pleasure in doing things: several days 2. Feeling down, depressed, or hopeless: not at all 3. Trouble falling or staying asleep, or sleeping too much: several days 4. Feeling tired or having little energy: several days 5. Poor appetite or overeating: not at all 6. Feeling bad about yourself - or that you are a failure or have let yourself or your family down: not at all 7. Trouble concentrating on things, such as reading the newspaper or watching television: not at all 8. Moving or speaking so slowly that other people could have noticed. Or the opposite - being so fidgety or restless that you have been moving around a lot more than usual: not at all 9. Thoughts that you would be better off or of hurting yourself in some way: not at all Total score: 3 Source: Developed by Drs. Beto Mclean, Flora Adams, Alf Victor and colleagues, with an educational ana maria from [employer]. Thrive Questionnaire Date Thrive assessed: 08/06/23 I am a: Patient What is your living situation today?: I choose not to answer this question Within the past 12 months, did the food you bought not last and you didn't have the money to get more?: I choose not to answer this question Within the past 12 months, did you worry whether your food would run out before you got money to buy more?: I choose not to answer this question Do you have trouble paying for medicines?: I choose not to answer this question Do you have trouble getting transportation to medical appointments?: I choose not to answer this question Do you have trouble paying your heating and electricity bill?: I choose not to answer this question Do you have trouble taking care of your child, family member or friend?: I choose not to answer this question Do you have trouble with day-to-day activities such as bathing, preparing meals, shopping, managing finances, etc.?: I choose not to answer this question Are you currently unemployed and looking for a job?: I choose not to answer this question Are you interested in more education?: I choose not to answer this question THRIVE Score: 0 AUDIT C Alcohol Use Questionnaire (AUDIT-C) 1. How often do you have a drink containing alcohol?: 2-3 times a week 2. How many drinks containing alcohol do you have on a typical day when you are drinking?: 1 or 2 3. How often do you have six or more drinks on one occasion?: Never Total Score: 3 ANNELISE-7 AMB Questionnaire ANNELISE-7 Date ANNELISE - 7 assessed: 08/06/23 Feeling nervous, anxious, or on edge: 1 = Several days Not being able to stop or control worryin = Several days Worrying too much about different things: 1 = Several days Trouble relaxin = Several days Becoming easily annoyed or irritable: 1 = Several days Feeling afraid as if something awful might happen: 0 = Not at all Source: Developed by Drs. Beto Mclean, Flora Adams, Alf Victor and colleagues, with an educational ana maria from [employer]. Review of Systems Const Reports as per HPI Physical exam (Primary Care) Vital Signs: Last Vital Signs Pulse 82 08/06/23 10:10 BP 140/72 H 08/06/23 10:10 Pulse Ox 97 08/06/23 10:10 Oxygen Delivery Method Room Air 08/06/23 10:10 BMI result Body Mass Index 40.9 Tobacco/Smoking Status: Tobacco use Status Tobacco use date assessed 08/06/23 08/06/23 10:17 Patient Tobacco Use Status Former Tobacco user 08/06/23 10:17 e-Cigarette/Vaping Use Never Used 08/06/23 10:17 PHQ-9: PHQ-9 Score PHQ-9: Total score 3 08/06/23 10:30 Thrive Assessment: Date of Thrive Assessment Date Thrive assessed 08/06/23 08/06/23 10:24 Const General: cooperative Orientation/consciousness: patient oriented x3 Resp Effort & Inspection: normal respiratory effort Auscultation: clear to auscultation bilaterally Cardio Palpation: normal PMI Rate: regular rate Rhythm: regular rhythm Heart sounds: S1 normal heart sound present, S2 normal heart sound present and no murmurs Neuro General: patient oriented x3 Psych Appearance: grossly normal Mental Status: mental status grossly normal Speech and movement: Normal speech and movement present Affect: normal affect Attitude: cooperative Thought process: Normal thought process present Thought content: Normal thought content present Insight: Good insight present (Psych) Judgement: Good judgement present (Psych) Assessment and Plan Assessment & Plan (1) Anxiety: Code(s): F41.9 - Anxiety disorder, unspecified Plan: Labs ordered, work on relaxation techniques. (2) HTN (hypertension): Code(s): I10 - Essential (primary) hypertension Plan: Labs ordered, will cont to monitor Plan The patient agreed to the use of a medical clinic manager for this encounter. Scribed for PRANAY Johnson by Carlyn Daniels medical clinic manager, on 08/06/2023 at 10:30 EST. Orders: Orders Complete Blood Count Auto Diff Today F41.9 - Anxiety disorder, unspecified, I10 - Essential (primary) hypertension TSH reflex Free T4 Today F41.9 - Anxiety disorder, unspecified, I10 - Essential (primary) hypertension Comprehensive Bryant. Panel Fast Today F41.9 - Anxiety disorder, unspecified, I10 - Essential (primary) hypertension UA CC w/rflx Micro + Cult Today F41.9 - Anxiety disorder, unspecified, I10 - Essential (primary) hypertension Lipid Panel Today F41.9 - Anxiety disorder, unspecified, I10 - Essential (primary) hypertension Coding Level of Care Code Est Pt Level 3 (90062) Diagnoses Anxiety F41.9 HTN (hypertension) I10
== END 2023-08-06 16:05 | disposition home or self-care (01) ==
PROVIDERS: PCP Nurse Practitioner Family; Visit Provider Nurse Practitioner Family
DX: F41.9 Anxiety disorder, unspecified (principal); I10 Essential (primary) hypertension
CPT/HCPCS: 99213

== ENCOUNTER 2023-09-20 14:21 | Outpatient (AMB) | payer MEDICARE, SELFPAY ==
--- NOTE | 2023-09-20 14:23 | AM.OFFWIN_ITS ---
Intake Vital Signs 09/20/23 14:24 Height 5 ft 4 in Weight 237 lb BMI 40.7 BP 116/70 Blood Pressure Location Lt brachial Position Sitting Pulse 69 Pulse Source Pulse Oximeter Temp 97.7 F Temp Source Temporal Artery Scan Pulse Oximetry (%) 96 Oxygen Delivery Method Room Air Intake Visit Reasons: EP RT Elbow Swelling Intake Note: pt is here today for rt elbow swelling started 2 weeks ago Patient Tobacco Use Status: Former Tobacco user Allergies No Known Allergies Allergy (Verified 09/20/23 14:24) Do you need a note to return to daycare/school/sports/work: No HPI HPI Comments History of Present Illness Details 73 y/o female patient who presents to [facility] in clinic with c/o right Elbow pain and swelling. Reports noticing a small lump on her right elbow x 2 weeks now. Reports pain with pressure to the lump. Denies numbness or tingling. [facility] Medical History Bilateral Achilles tendonosis COPD (chronic obstructive pulmonary disease) Surgical History History of total hysterectomy Hx of cholecystectomy Family History Father No problems noted. Mother No problems noted. Sister No problems noted. Sister No problems noted. Son No problems noted. Daughter No problems noted. Social History Household Members: Spouse Housing: House Alcohol intake: never Patient Tobacco Use Status: Former Tobacco user Years Smoked: 14 years ago e-Cigarette/Vaping Use: Never Used Second Hand Smoke Exposure: No service: No Current occupational status: retired Cognitive needs: No Hearing needs: No Vision needs: No Review of Systems Const All systems reviewed & are unremarkable except as noted in HPI and below Physical Exam Vital Signs: Last Vital Signs Temp 97.7 F 09/20/23 14:24 Pulse 69 09/20/23 14:24 BP 116/70 09/20/23 14:24 Pulse Ox 96 09/20/23 14:24 Oxygen Delivery Method Room Air 09/20/23 14:24 BMI result Body Mass Index 40.7 Const General: comfortable and no acute distress Nutritional Appearance: obese Orientation/consciousness: patient oriented x3 Neuro General: patient oriented x3, gait normal and moves all extremities Extrem Right upper extremity: normal capillary refill and elbow/forearm (A small size mass/cyst (~ size of Golf ball) right elbow, tender, soft ) Details: tenderness Location: of the olecranon and normal ROM Left upper extremity: normal to inspection and full ROM Psych Speech and movement: Clear speech present Affect: normal affect Attitude: cooperative Assessment & Plan Assessment & Plan (1) Ganglion cyst: Code(s): M67.40 - Ganglion, unspecified site Plan: - DDx's: Ganglion cyst vs Olecranon Bursitis vs Lipoma. - Will refer Pt to Ortho - NSAIDs for pain relief. Coding Level of Care Code Est Pt Level 3 (73372) Diagnoses Ganglion cyst M67.40 Time Spent (min) 15
[2023-09-20 14:24] VITALS: BP 116/70; PULSE 69; TEMP 36.5; O2SAT 96; BMI 40.7
== END 2023-09-20 14:58 | disposition home or self-care (01) ==
PROVIDERS: PCP Nurse Practitioner Family; Visit Provider Nurse Practitioner Family
DX: M67.40 Ganglion, unspecified site (principal)
CPT/HCPCS: 99213

== ENCOUNTER 2023-11-14 08:29 | Outpatient (REF) | payer MEDICARE, SELFPAY ==
[2023-11-14 10:27] LABS: MANUAL DIFF FLAG NO
[2023-11-14 10:28] LABS: Appearance Urine Clear; Color Urine Yellow; Glucose Urine UA Negative (Negative); Leukocyte Esterase Urine Trace (Negative); Nitrite Urine Negative (Negative); PH 6.5 (5.0-9.0); UMIC TRIGGER UACC YES; Urine Blood Negative (Negative); Urine Ketones Negative (Negative); Urine Protein Negative (Neg-Trace)
[2023-11-14 10:31] LABS: Bacteria Urine None Seen (None Seen); Hyaline Casts Urine 0-2 /LPF (0-2); RBC Urine 0-2 /HPF (0-2); UACC Culture Trigger YES
[2023-11-14 10:46] LABS: Basophils Absolute Auto 0.1 X10*3/uL (0.0-0.2); Basophils Percent Auto 0.8 % (0-2); Eosinophils Absolute Auto 0.1 X10*3/uL (0.0-0.4); Eosinophils Percent Auto 1.9 % (0-4); Hematocrit 40.9 % (37.0-47.0); Hemoglobin 13.2 g/dl (12.0-16.0); Imm Gran Abs Auto 0.05 X10*3/uL (0.00-0.03); Imm Gran Pct Auto 0.8 % (0.0-0.4); Lymphocytes Absolute Auto 1.6 X10*3/uL (1.2-4.9); Lymphocytes Percent Auto 25.1 % (20-40); Mean Corpuscular HGB Conc 32.3 g/dl (31.0-35.0); Mean Corpuscular Hemoglobin 28.4 pg (27.0-33.0); Mean Corpuscular Volume 88.1 fL (80.0-98.0); Mean Platelet Volume 12.1 fL (9.4-12.3); Monocytes Absolute Auto 0.5 X10*3/uL (0.1-1.2); Monocytes Percent Auto 7.2 % (2-11); Neutrophils Absolute Auto 4.1 x10*3/uL (2.0-8.3); Neutrophils Percent Auto 64.2 % (45-73); Platelet Count 183 X10*3/uL (160-400); Red Blood Count 4.64 X10*6/uL (4.20-5.50); White Blood Count 6.4 X10*3/uL (4.8-10.8)
[2023-11-14 11:08] LABS: Alanine Aminotransferase 18 U/L (0-31); Albumin Level 3.8 g/dL (3.5-5.0); Alkaline Phosphatase 94 U/L (39-117); Anion Gap 15 (12-20); Aspartate Amino Transferase 19 U/L (5-31); Bilirubin Total 0.4 mg/dL (0.0-1.0); Blood Urea Nitrogen 37 mg/dL (9-16); Calcium 9.8 mg/dL (8.4-10.2); Carbon Dioxide 25 mmol/L (22-29); Chloride 106 mmol/L (96-108); Cholesterol 153 mg/dL (<200); Estimated Glomerular Filt Rate 44; Glucose Fasting 99 mg/dL (60-99); HDL Cholesterol 55 mg/dL (>40); LDL Cholesterol Calculated 74 mg/dL (<100); Potassium 4.6 mmol/L (3.3-5.1); Sodium 141 mmol/L (135-145); Total Protein 6.9 g/dL (6.5-8.0); Triglycerides 123 mg/dL (<150)
[2023-11-14 11:13] LABS: TSH reflex Free T4 2.98 uIU/mL (0.32-4.0)
== END 2023-11-14 08:30 | disposition home or self-care (01) ==
LOC: HO.HMGCLDS 08:29
PROVIDERS: PCP Nurse Practitioner Family; Visit Provider Nurse Practitioner Family
DX: F41.9 Anxiety disorder, unspecified (principal); I10 Essential (primary) hypertension
CPT/HCPCS: 36415; 80053; 80061; 81001; 84443; 85025; 87086

== ENCOUNTER 2023-11-19 10:48 | Outpatient (REF) | payer MEDICARE, SELFPAY ==
--- NOTE | ~2023-11-19 | XR_ITS ---
EXAMINATION: XR ELBOW, RIGHT CLINICAL INFORMATION: Pain in right elbow. COMPARISON: None available. TECHNIQUE: AP, lateral, and oblique views of the right elbow. FINDINGS: Radiopaque marker placed by technologist to indicate the area of concern as indicated by the patient along the posterior aspect of the elbow. There is soft tissue swelling over the posterior aspect of the elbow/olecranon. Bones are diffusely demineralized. Alignment is preserved. Mild degenerative changes with mild hypertrophic change at the elbow. No displaced fracture appreciated. XR/XR elbow RT min 3V IMPRESSION: 1. Soft tissue swelling over the posterior aspect of the elbow/olecranon. 2. Mild degenerative changes. 3. No displaced fracture appreciated. 4. Recommend follow up imaging in 10-14 days if fracture is suspected.
== END 2023-11-19 10:49 | disposition home or self-care (01) ==
LOC: HO.HOSX 10:48
PROVIDERS: Visit Provider Physician Assistant
DX: M70.21 Olecranon bursitis, right elbow (principal)
CPT/HCPCS: 73080; 99202

== ENCOUNTER 2023-11-19 12:41 | Outpatient (AMB) | payer MEDICARE, SELFPAY ==
--- NOTE | 2023-11-19 12:51 | A.OFFVIS_ITS ---
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 Patient reports lump present since the end of August. She was seen at a walk in clinic who referred patient to orthopedics. The lump has improved in size however she continues to have tenderness at lump site. She does not recall an injury however she may have bumped her elbow on the shower railing. 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 She reports a lump on her right elbow since the end of August. She was seen at walk-in clinic where she was referred to our office. She states she has improvement in the size however she continues to have tenderness, pain and swelling at the lump site. Her pain is aggravated with leaning on her right arm. She has not had any previous injury however she does recall bumping her elbow on shower railing. [facility] Medical History Bilateral Achilles tendonosis COPD (chronic obstructive pulmonary disease) Surgical History Hx of cholecystectomy History of total hysterectomy Family History Father No problems noted. Mother No problems noted. Sister No problems noted. Sister No problems noted. Son No problems noted. Daughter No problems noted. Social History (Updated 11/19/23 @ 13:02 by MARCELLUS Machuca) Household Members: Spouse Housing: House Alcohol intake: never Patient Tobacco Use Status: Former Tobacco user Years Smoked: 14 years ago e-Cigarette/Vaping Use: Never Used Second Hand Smoke Exposure: No service: No Current occupational status: retired Current occupation: right hand dominant Cognitive needs: No Hearing needs: No Vision needs: No Review of Systems Const All systems reviewed & are unremarkable except as noted in HPI and below Physical Exam Vital Signs: BMI result Body Mass Index 40.7 Const General: cooperative, healthy appearing, comfortable, no acute distress, well developed and alert Orientation/consciousness: patient oriented x3 HEENT Head: Yes normal to inspection, Yes normocephalic and Yes atraumatic Eyes General: appearance normal, both eyes and all related structures Resp Effort & Inspection: normal respiratory effort and able to speak in complete sentences Cardio Rate: regular rate Peripheral pulses: Peripheral pulses 2+ throughout GI Palpation (GI): Soft to palpation Skin Lesions: no lesions Rashes: no rashes Neuro General: patient oriented x3 Extrem Other: Right elbow: Normal to inspection. She does have a trace olecranon bursitis. No redness, warmth or tenderness to palpation. She has full ROM without pain. NVI. Results Reviewed Results Reviewed: Xrays were obtained in the office today and personally reviewed by me of the right elbow show mild oa Assessment & Plan Assessment & Plan (1) Olecranon bursitis, right elbow: Code(s): M70.21 - Olecranon bursitis, right elbow Category: Medical Plan We discussed conservative management, which includes compression, NSAIDs and activity modifications. If symptoms worsen, the area becomes red, hot and painful, they should return to see me. Otherwise, PRN. Orders: Orders XR elbow RT min 3V Today M25.521 - Pain in right elbow Patient Instructions: Scribed for Graham Suarez PA-C, by Ronnie Patton medical facilities section director, on 11/07/2023 at 1:00 PM EST. IGraham PA-C, have personally reviewed and agree with the information entered by the scribe. Coding Level of Care Code New Pt Level 3 (22057) Diagnoses Olecranon bursitis, right elbow M70.21
[2023-11-19 13:03] VITALS: BMI 40.7
== END 2023-11-19 13:39 | disposition home or self-care (01) ==
PROVIDERS: PCP Nurse Practitioner Family; Visit Provider Physician Assistant
DX: M70.21 Olecranon bursitis, right elbow (principal)
CPT/HCPCS: 99203

== ENCOUNTER 2023-11-26 08:41 | Outpatient (AMB) | payer MEDICARE, SELFPAY ==
--- NOTE | 2023-11-26 08:55 | MHC.PC.OV ---
Vital Signs 11/26/23 08:57 Height 5 ft 4 in Weight 239 lb BMI 41.0 BP 118/78 Blood Pressure Location Rt brachial Position Sitting Pulse 76 Pulse Source Pulse Oximeter Pulse Oximetry (%) 97 Oxygen Delivery Method Room Air Intake Visit Reasons: Annual PE - see comments Intake Note: Patient here for physical exam. Allergies No Known Allergies Allergy (Verified 11/26/23 08:58) Tobacco use date assessed: 08/06/23 Fall risk assessment: No Falls in past year Last assessed Fall Risk: 11/26/23 Dental Screening Dental Screen Date: 08/06/23 HPI Annual PE - see comments HPI Details Pt is here for a PE. Will order labs. Due for cologuard, will order. Due for mammo, will order. Due for bone density, will order. COPD: stable, up stairs can exacerbate symptoms, uses inhaler prn only (reports working great). Pt has slight swelling to her right elbow. This appears to be olecranon bursitis. Pt is wearing a pad for this. She knows not to rest her elbow on hard surfaces. [facility] Medical History (Updated 11/26/23 @ 09:40 by NII Angel-ASTRID) Postmenopausal Bilateral Achilles tendonosis COPD (chronic obstructive pulmonary disease) Surgical History Hx of cholecystectomy History of total hysterectomy Family History Father No problems noted. Mother No problems noted. Sister No problems noted. Sister No problems noted. Son No problems noted. Daughter No problems noted. Social History Household Members: Spouse Housing: House Alcohol intake: never Patient Tobacco Use Status: Former Tobacco user Years Smoked: 14 years ago e-Cigarette/Vaping Use: Never Used Second Hand Smoke Exposure: No service: No Current occupational status: retired Current occupation: right hand dominant Cognitive needs: No Hearing needs: No Vision needs: No Questionnaire Thrive Questionnaire Date Thrive assessed: 08/06/23 ANNELISE-7 AMB Questionnaire ANNELISE-7 Date ANNELISE - 7 assessed: 08/06/23 Source: Developed by Drs. Beto Mclean, Flora Adams, Alf Victor and colleagues, with an educational ana maria from [employer]. Review of Systems Const Denies chills and Denies fever(s) Eyes Denies blurry vision ENT Denies vertigo, Denies dizziness and Denies sore throat Card Denies chest pain at rest, Denies chest pain with activity, Denies diaphoresis, Denies dyspnea and Denies dyspnea on exertion Resp Denies cough, Denies dyspnea, Denies dyspnea on exertion and Denies wheezing GI Denies abdominal pain, Denies melena, Denies hematochezia, Denies constipation, Denies diarrhea and Denies loose stools Denies hematuria Musc Denies numbness and Denies tingling Skin/Breast Denies lesions Neuro Denies vertigo, Denies dizziness, Denies numbness and Denies tingling Psych Denies anxiety, Denies depression, Denies homicidal ideation, Denies suicidal ideation and Denies other (substance abuse) Aller/Immun Denies wheezing Physical exam (Primary Care) Vital Signs: Last Vital Signs Pulse 76 11/26/23 08:57 BP 118/78 11/26/23 08:57 Pulse Ox 97 11/26/23 08:57 Oxygen Delivery Method Room Air 11/26/23 08:57 BMI result Body Mass Index 41.0 Tobacco/Smoking Status: Tobacco use Status Tobacco use date assessed 08/06/23 11/26/23 08:57 Patient Tobacco Use Status Former Tobacco user 11/26/23 08:57 e-Cigarette/Vaping Use Never Used 11/26/23 08:57 Thrive Assessment: Date of Thrive Assessment Date Thrive assessed 08/06/23 11/26/23 08:57 Const General: cooperative Nutritional Appearance: obese morbidly obese Orientation/consciousness: patient oriented x3 HENMT Head: Yes normal to inspection, Yes normocephalic and Yes atraumatic Ears: TM's normal bilaterally Eyes General: appearance normal, both eyes and all related structures Alignment and Position: alignment normal and position normal Neck Neck: Yes normal visual inspection and Yes no lymphadenopathy Thyroid: Thyroid normal Resp Effort & Inspection: normal respiratory effort Auscultation: clear to auscultation bilaterally Cardio Rate: regular rate Rhythm: regular rhythm Heart sounds: S1 normal heart sound present, S2 normal heart sound present and no murmurs GI Palpation (GI): Soft to palpation and nontender Auscultation: normal bowel sounds Skin Rashes: no rashes Neuro General: patient oriented x3, moves all extremities, no focal motor deficits and deep tendon reflexes 2+ bilaterally Romberg Test: Negative Extrem Other: slight swelling to right elbow, not tender with touch. +1 pitting to RLE, LLE-trace. Psych Appearance: grossly normal Mental Status: mental status grossly normal Speech and movement: Normal speech and movement present Affect: normal affect Attitude: cooperative Thought process: Normal thought process present Thought content: Normal thought content present Insight: Good insight present (Psych) Judgement: Good judgement present (Psych) Assessment and Plan Assessment & Plan (1) Postmenopausal: Code(s): Z78.0 - Asymptomatic menopausal state Plan: Bone density ordered (2) Vitamin D deficiency: Code(s): E55.9 - Vitamin D deficiency, unspecified Plan: Bone density ordered (3) Encounter for routine adult physical exam with abnormal findings: Code(s): Z00.01 - Encounter for general adult medical examination with abnormal findings Plan: Labs ordered (4) Olecranon bursitis, right elbow: Code(s): M70.21 - Olecranon bursitis, right elbow Plan: Continue to use pad (5) COPD (chronic obstructive pulmonary disease): Code(s): J44.9 - Chronic obstructive pulmonary disease, unspecified Plan: Stable currently Plan The patient agreed to the use of a biomedical engineering technician for this encounter. Scribed for PRANAY Johnson by Carlyn Daniels biomedical engineering technician, on 11/26/2023 at 09:20 EST. Orders: Orders XR DEXA axial skeleton Today E55.9 - Vitamin D deficiency, unspecified, Z78.0 - Asymptomatic menopausal state MM screening mammo BI Today Z12.31 - Encounter for screening mammogram for malignant neoplasm of breast Referrals Cologuard Test Z12.11 - Encounter for screening for malignant neoplasm of colon, Z12.12 - Encounter for screening for malignant neoplasm of rectum Coding Level of Care Code Est Pt Prev Care >65y(43453) Diagnoses Postmenopausal Z78.0 Vitamin D deficiency E55.9 Encounter for routine adult physical exam with abnormal findings Z00.01 Olecranon bursitis, right elbow M70.21 COPD (chronic obstructive pulmonary disease) J44.9
[2023-11-26 08:57] VITALS: BP 118/78; PULSE 76; O2SAT 97; BMI 41.0
== END 2023-11-26 09:43 | disposition home or self-care (01) ==
PROVIDERS: PCP Nurse Practitioner Family; Visit Provider Nurse Practitioner Family
DX: Z00.00 Encounter for general adult medical examination without abnormal findings (principal); J44.9 Chronic obstructive pulmonary disease, unspecified; Z78.0 Asymptomatic menopausal state; E55.9 Vitamin D deficiency, unspecified; M70.21 Olecranon bursitis, right elbow
CPT/HCPCS: 99397

== ENCOUNTER 2024-03-27 08:06 | Outpatient (AMB) | payer MEDICARE, SELFPAY ==
[2024-03-27 08:07] VITALS: BP 122/74; PULSE 74; O2SAT 98; BMI 41.0
--- NOTE | 2024-03-27 08:07 | A.OFFPC_ITS ---
Vital Signs 03/27/24 08:07 Height 5 ft 4 in Weight 239 lb 2 oz BMI 41.0 BP 122/74 Blood Pressure Location Rt brachial Position Sitting Pulse 74 Pulse Source Pulse Oximeter Pulse Oximetry (%) 98 Intake Visit Reasons: 4 mon f/u Intake Note: pt is here for 4 month follow up Wealth Management Consultant Required: No Accompanied by: Self / Same As Patient Allergies No Known Allergies Allergy (Verified 03/27/24 08:07) Medication List - Last Reconciled 03/27/24 by PRANAY Angel albuterol sulfate 90 mcg/actuation 1 inh inhalation QID PRN atenolol 25 mg PO DAILY atorvastatin 10 mg PO DAILY bupropion HCl XL 300 mg PO DAILY buspirone 7.5 mg PO ONCE PRN 90 days chlorthalidone 25 mg PO DAILY cholecalciferol (vitamin D3) 25 mcg PO DAILY diclofenac sodium 1% 4 grams topical QID docusate sodium (Stool Softener) 50 mg PO DAILY fluticasone propion-salmeterol 500-50 mcg/dose (Wixela Inhub) 1 inh inhalation BID 90 days gabapentin 200 mg (2 x 100 mg) PO TID 90 days lisinopril 40 mg PO DAILY 90 days naproxen 250 mg PO BID PRN Tobacco use date assessed: 08/06/23 Fall risk assessment: 1 Fall in past year Last assessed Fall Risk: 03/27/24 Dental Screening Dental Screen Date: 08/06/23 HPI 4 mon f/u HPI Details HTN: Blood pressure is stable, managed with atenolol 25mg, chlorthalidone 25mg, and lisinopril 40mg. Denies chest pain, shortness of breath, headache, dizziness, and blurred vision. Pt has a hx of elevated fasting blood sugar. Will order labs. [facility] Medical History Postmenopausal Bilateral Achilles tendonosis COPD (chronic obstructive pulmonary disease) Surgical History Hx of cholecystectomy History of total hysterectomy Family History Father No problems noted. Mother No problems noted. Sister No problems noted. Sister No problems noted. Son No problems noted. Daughter No problems noted. Social History Household Members: Spouse Housing: House Alcohol intake: never Patient Tobacco Use Status: Former Tobacco user Years Smoked: 14 years ago e-Cigarette/Vaping Use: Never Used Second Hand Smoke Exposure: No service: No Current occupational status: retired Current occupation: right hand dominant Cognitive needs: No Hearing needs: No Vision needs: No Questionnaire PHQ-9 Over the last 2 weeks, how often have you been bothered by any of the following problems? 1. Little interest or pleasure in doing things: not at all 2. Feeling down, depressed, or hopeless: not at all 3. Trouble falling or staying asleep, or sleeping too much: not at all 4. Feeling tired or having little energy: not at all 5. Poor appetite or overeating: not at all 6. Feeling bad about yourself - or that you are a failure or have let yourself or your family down: not at all 7. Trouble concentrating on things, such as reading the newspaper or watching television: not at all 8. Moving or speaking so slowly that other people could have noticed. Or the opposite - being so fidgety or restless that you have been moving around a lot more than usual: not at all 9. Thoughts that you would be better off or of hurting yourself in some way: not at all Total score: 0 Depression Screening Interpretation: Negative Depression Screening Done: Yes 23712 - PHQ-9 Billing: Yes Source: Developed by Drs. Beto Mclean, Flora Adams, Alf Victor and colleagues, with an educational ana maria from [employer]. Thrive Questionnaire Date Thrive assessed: 03/27/24 I am a: Patient What is your living situation today?: I have a steady place to live Within the past 12 months, did the food you bought not last and you didn't have the money to get more?: Never true Within the past 12 months, did you worry whether your food would run out before you got money to buy more?: Never true Do you have trouble paying for medicines?: No Do you have trouble getting transportation to medical appointments?: No Do you have trouble paying your heating and electricity bill?: No Do you have trouble taking care of your child, family member or friend?: No Do you have trouble with day-to-day activities such as bathing, preparing meals, shopping, managing finances, etc.?: No Are you interested in more education?: No Please select the resources that you would like help with: None Currently or been in a relationship where the following occur: No concerns reported THRIVE Score: 0 AUDIT C Alcohol Use Questionnaire (AUDIT-C) 1. How often do you have a drink containing alcohol?: Monthly or less 2. How many drinks containing alcohol do you have on a typical day when you are drinking?: 1 or 2 3. How often do you have six or more drinks on one occasion?: Never Total Score: 1 Score Reviewed/Action Taken: Yes ANNELISE-7 AMB Questionnaire ANNELISE-7 Date ANNELISE - 7 assessed: 03/27/24 Feeling nervous, anxious, or on edge: 1 = Several days Not being able to stop or control worryin = Several days Worrying too much about different things: 1 = Several days Trouble relaxin = Not at all Being so restless that it is hard to sit still: 0 = Not at all Becoming easily annoyed or irritable: 1 = Several days Feeling afraid as if something awful might happen: 0 = Not at all Total ANNELISE-7 score (0-4 normal; 5-9 mild; 10-14 moderate; 15-21 severe): 4 Source: Developed by Drs. Beto Mclean, Flora Adams, Alf Vcitor and colleagues, with an educational ana maria from [employer]. ANNELISE-7 Assessment Billing ANNELISE-7 Assessment Tool: ANNELISE-7 Assessment 63061 Review of Systems Const Reports as per HPI Physical exam (Primary Care) Vital Signs: Last Vital Signs Pulse 74 03/27/24 08:07 BP 122/74 03/27/24 08:07 Pulse Ox 98 03/27/24 08:07 BMI result Body Mass Index 41.0 Tobacco/Smoking Status: Tobacco use Status Tobacco use date assessed 08/06/23 03/27/24 08:08 Patient Tobacco Use Status Former Tobacco user 03/27/24 08:08 e-Cigarette/Vaping Use Never Used 03/27/24 08:08 PHQ-9: PHQ-9 Score PHQ-9: Total score 0 03/27/24 08:08 Depression Screening Interpretation: Negative Thrive Assessment: Date of Thrive Assessment Date Thrive assessed 03/27/24 03/27/24 08:08 Currently or been in a relationship where the following occur: No concerns reported Const General: cooperative Nutritional Appearance: obese Orientation/consciousness: patient oriented x3 Resp Effort & Inspection: normal respiratory effort Auscultation: clear to auscultation bilaterally Cardio Rate: regular rate Rhythm: regular rhythm Heart sounds: S1 normal heart sound present and S2 normal heart sound present Neuro General: patient oriented x3 Extrem Other: trace pitting edema bilat Psych Appearance: grossly normal Mental Status: mental status grossly normal Speech and movement: Normal speech and movement present Affect: normal affect Attitude: cooperative Thought process: Normal thought process present Thought content: Normal thought content present Insight: Good insight present (Psych) Judgement: Good judgement present (Psych) Assessment and Plan Assessment & Plan (1) HTN (hypertension): Code(s): I10 - Essential (primary) hypertension Plan: Stable, labs ordered (2) Elevated fasting blood sugar: Code(s): R73.01 - Impaired fasting glucose Plan: Labs ordered (3) Vitamin D deficiency: Code(s): E55.9 - Vitamin D deficiency, unspecified Plan: ordered lab Plan The patient agreed to the use of a biomedical engineering professor for this encounter. Scribed for Mckinley Hodges RECOVERY UNIT OPERATOR- by Carlyn Daniels biomedical engineering professor, on 03/27/2024 at 08:25 EST. Orders: Orders Comprehensive [place]. Panel Fast Today I10 - Essential (primary) hypertension, R73.01 - Impaired fasting glucose UA CC w/rflx Micro + Cult Today I10 - Essential (primary) hypertension, R73.01 - Impaired fasting glucose Vitamin D 25-OH Total Today E55.9 - Vitamin D deficiency, unspecified Complete Blood Count Auto Diff Today I10 - Essential (primary) hypertension, R73.01 - Impaired fasting glucose TSH reflex Free T4 Today I10 - Essential (primary) hypertension, R73.01 - Impaired fasting glucose Lipid Panel Today I10 - Essential (primary) hypertension, R73.01 - Impaired fasting glucose Coding Level of Care Code Est Pt Level 3 (25470) Diagnoses HTN (hypertension) I10 Elevated fasting blood sugar R73.01 Vitamin D deficiency E55.9 Additional Codes ANNELISE-7 Assessment Billing - ANNELISE-7 Assessment Tool: ANNELISE-7 Assessment 56075 ([id number])
== END 2024-03-27 08:39 | disposition home or self-care (01) ==
PROVIDERS: PCP Nurse Practitioner Family; Visit Provider Nurse Practitioner Family
DX: I10 Essential (primary) hypertension (principal); R73.01 Impaired fasting glucose; E55.9 Vitamin D deficiency, unspecified

== ENCOUNTER → 2024-03-27 08:06 | Outpatient (BNVA) | payer MEDICARE, SELFPAY | PROVIDERS: PCP Nurse Practitioner Family; Visit Provider Nurse Practitioner Family | DX: I10 Essential (primary) hypertension (principal); R73.01 Impaired fasting glucose; E55.9 Vitamin D deficiency, unspecified | CPT/HCPCS: 96127; 99212 ==

== ENCOUNTER 2024-08-01 09:11 | Outpatient (REF) | payer MEDICARE, SELFPAY ==
[2024-08-01 13:53] LABS: Appearance Urine Cloudy; Color Urine Yellow; Glucose Urine UA Negative (Negative); Leukocyte Esterase Urine Large (3+) (Negative); Nitrite Urine Negative (Negative); PH 5.5 (5.0-9.0); Specific Gravity - Urine 1.015 (1.005-1.025); UMIC TRIGGER UACC YES; Urine Blood Trace (Negative); Urine Ketones Negative (Negative); Urine Protein Negative (Neg-Trace)
[2024-08-01 13:53] LABS: MANUAL DIFF FLAG NO
[2024-08-01 13:56] LABS: Bacteria Urine 4+ (None Seen); RBC Urine 0-2 /HPF (0-2); UACC Culture Trigger YES; WBC Urine >50 /HPF (0-5)
[2024-08-01 13:56] LABS: Basophils Percent Auto 0.8 % (0-2); Eosinophils Absolute Auto 0.1 X10*3/uL (0.0-0.4); Eosinophils Percent Auto 1.9 % (0-4); Hematocrit 39.2 % (37.0-47.0); Hemoglobin 12.7 g/dl (12.0-16.0); Imm Gran Abs Auto 0.06 X10*3/uL (0.00-0.03); Imm Gran Pct Auto 1.1 % (0.0-0.4); Lymphocytes Absolute Auto 1.3 X10*3/uL (1.2-4.9); Lymphocytes Percent Auto 23.8 % (20-40); Mean Corpuscular HGB Conc 32.4 g/dl (31.0-35.0); Mean Corpuscular Hemoglobin 28.3 pg (27.0-33.0); Mean Corpuscular Volume 87.3 fL (80.0-98.0); Mean Platelet Volume 11.7 fL (9.4-12.3); Monocytes Absolute Auto 0.4 X10*3/uL (0.1-1.2); Monocytes Percent Auto 7.3 % (2-11); Neutrophils Absolute Auto 3.5 x10*3/uL (2.0-8.3); Neutrophils Percent Auto 65.1 % (45-73); Platelet Count 175 X10*3/uL (160-400); Red Blood Count 4.49 X10*6/uL (4.20-5.50); Red Cell Distribution Width 13.7 % (11.0-16.0); White Blood Count 5.3 X10*3/uL (4.8-10.8)
[2024-08-01 14:53] LABS: Alanine Aminotransferase 16 U/L (0-31); Albumin Level 3.7 g/dL (3.5-5.0); Alkaline Phosphatase 91 U/L (39-117); Anion Gap 12 (12-20); Aspartate Amino Transferase 26 U/L (5-31); Bilirubin Total 0.4 mg/dL (0.0-1.0); Blood Urea Nitrogen 32 mg/dL (9-16); Calcium 9.5 mg/dL (8.4-10.2); Carbon Dioxide 25 mmol/L (22-29); Chloride 109 mmol/L (96-108); Cholesterol 136 mg/dL (<200); Estimated Glomerular Filt Rate 42; Glucose Fasting 82 mg/dL (60-99); HDL Cholesterol 41 mg/dL (>40); LDL Cholesterol Calculated 63 mg/dL (<100); Potassium 4.6 mmol/L (3.3-5.1); Sodium 141 mmol/L (135-145); Total Protein 6.9 g/dL (6.5-8.0); Triglycerides 160 mg/dL (<150)
[2024-08-01 15:13] LABS: TSH reflex Free T4 1.57 uIU/mL (0.32-4.0); Vitamin D 25-OH Total 43.5 ng/mL (>30)
== END 2024-08-01 09:12 | disposition home or self-care (01) ==
LOC: HO.HMGCLDS 09:11
PROVIDERS: PCP Nurse Practitioner Family; Visit Provider Nurse Practitioner Family
DX: I10 Essential (primary) hypertension (principal); R73.01 Impaired fasting glucose; E55.9 Vitamin D deficiency, unspecified; R82.79 Other abnormal findings on microbiological examination of urine
CPT/HCPCS: 36415; 80053; 80061; 81001; 82306; 84443; 85025; 87086; 87088; 87186

== ENCOUNTER 2024-08-07 14:18 | Outpatient (REF) | payer MEDICARE, SELFPAY ==
--- NOTE | ~2024-08-07 | US_ITS ---
CLINICAL HISTORY: R31.29 - Other microscopic hematuria US Renal Comparison: None Findings: Right kidney normal size and echotexture, 11.0 cm length. Small right mid kidney cyst measuring 7 mm in greatest dimension. Left kidney normal size and echotexture, 10.1 cm length. No collecting system dilatation of either kidney. Normal color Doppler. Urinary bladder is unremarkable. Prevoid volume 252 mL. Postvoid volume 0 mL. Bilateral ureteral jets are visualized. IMPRESSION: 1. Unremarkable renal ultrasound. Single benign-appearing right renal cysts. This document has been electronically signed by: Constanza Manriquez MD on 08/13/2024 07:19:38
== END 2024-08-07 14:19 | disposition home or self-care (01) ==
LOC: HO.HMGCX 14:18
PROVIDERS: PCP Nurse Practitioner Family; Visit Provider Nurse Practitioner Family
DX: R31.29 Other microscopic hematuria (principal)
CPT/HCPCS: 76770

== ENCOUNTER → 2024-08-07 14:20 | Outpatient (BNV) | payer MEDICARE, SELFPAY | PROVIDERS: PCP Nurse Practitioner Family; Visit Provider Radiology Diagnostic Radiology | DX: N28.1 Cyst of kidney, acquired (principal) | CPT/HCPCS: 76770 ==

== ENCOUNTER 2024-08-13 09:48 | Outpatient (AMB) | payer MEDICARE, SELFPAY ==
--- NOTE | 2024-08-13 09:51 | MHC.PC.OV ---
Vital Signs 08/13/24 09:53 Height 5 ft 4 in Weight 234 lb BMI 40.2 BP 102/70 Blood Pressure Location Rt brachial Position Sitting Respiration 18 Pulse 58 Pulse Source Pulse Oximeter Temp 97.5 F Temp Source Oral Pulse Oximetry (%) 98 Oxygen Delivery Method Room Air Intake Visit Reasons: 4 months f/up Intake Note: Pt is here today for her 4mo. f/u Allergies No Known Allergies Allergy (Verified 08/13/24 09:53) Medication List - Last Reconciled 08/13/24 by Mckinley Hodges, [employer]- albuterol sulfate 90 mcg/actuation 1 inh inhalation QID PRN atenolol 25 mg PO DAILY atorvastatin 10 mg PO DAILY bupropion HCl XL 300 mg PO DAILY buspirone 7.5 mg PO ONCE PRN 90 days chlorthalidone 25 mg PO DAILY cholecalciferol (vitamin D3) 25 mcg PO DAILY diclofenac sodium 1% 4 grams topical QID docusate sodium (Stool Softener) 50 mg PO DAILY fluticasone propion-salmeterol 500-50 mcg/dose (Wixela Inhub) 1 inh inhalation BID 90 days gabapentin 200 mg (2 x 100 mg) PO TID 90 days lisinopril 40 mg PO DAILY 90 days naproxen 250 mg PO BID PRN Tobacco use date assessed: 08/13/24 Fall risk assessment: No Falls in past year Last assessed Fall Risk: 08/13/24 Dental Screening Dental Screen Date: 08/13/24 Did you have a dental visit in the last 12 months?: Yes Did you have a dental problem in the last 6 months where you did not have access to dental care?: No Was dental information given to patient?: Patient has dentist HPI 4 months f/up HPI Details Chief Complaint Follow-up for blood pressure management and evaluation of microhematuria. History of Present Illness The patient is a 74-year-old female presenting with a follow-up for hypertension. Blood pressure stability has significantly improved under current management. Recently, microhematuria was identified during evaluations. Despite recommendations, the patient has refused a urology referral for cystoscopy. She has undergone a CT urogram indicating a benign renal cyst. The patient denies experiencing flank pain, fever, or chills. There was no costovertebral angle tenderness noted bilaterally. NOTE: refused mammos. Social History Health Maintenance - CT urogram performed with findings of a benign renal cyst. Review of Systems - Urinary system: Denies flank pain, fever, or chills. Physical Exam General: Cooperative, healthy appearing, comfortable, no acute distress and well developed, obese Orientation: Patient oriented x3 Limitations: No limitations Head: Normal to inspection Ears: Hearing grossly normal bilaterally Nose: Normal external nose present Face and sinus: Normal facial exam Eyes: Appearance normal, both eyes and all related structures Neck: Normal visual inspection and Yes full ROM Respiratory: Normal respiratory effort and able to speak in complete sentences. Clear to auscultation bilaterally Cardiovascular: Regular rate and rhythm. Normal S1 and S2 GI: Normal to inspection. Soft to palpation and nontender Skin: No rashes or lesions noted Neuro: Patient oriented x3 Extremities: Normal to inspection, no edema Results - Tests and Diagnostics: CT urogram indicating a benign renal cyst. Plan - Repeat urinalysis and cytology for further evaluation of microhematuria. - Continue monitoring blood pressure and ensure compliance with current antihypertensive treatment. Discussion Notes I discussed with the patient the importance of monitoring the microhematuria to ensure there are no underlying issues despite the benign finding in the CT urogram. I explained the necessity of repeating urinalysis and cytology to further investigate this concern. The patient refused a referral to urology for cystoscopy despite these discussions. I ensured she understood the potential risks and benefits of these procedures. We talked about her blood pressure, which is stable under the current regimen, and emphasized maintaining this stability. I also advised on follow-up visits to monitor hypertension and any changes in symptoms. Patient Instructions - Continue with current blood pressure medications and regimen. - Schedule repeat urinalysis and cytology tests as instructed. - Monitor for any new or worsening symptoms and report them promptly. - Maintain lifestyle measures that support blood pressure control, such as diet and exercise. [facility] Medical History Postmenopausal Bilateral Achilles tendonosis COPD (chronic obstructive pulmonary disease) Surgical History Hx of cholecystectomy History of total hysterectomy Family History Father No problems noted. Mother No problems noted. Sister No problems noted. Sister No problems noted. Son No problems noted. Daughter No problems noted. Social History Household Members: Spouse Housing: House Alcohol intake: never Patient Tobacco Use Status: Former Tobacco user Years Smoked: 14 years ago e-Cigarette/Vaping Use: Never Used Second Hand Smoke Exposure: No service: No Current occupational status: retired Current occupation: right hand dominant Cognitive needs: No Hearing needs: No Vision needs: Yes Questionnaire PHQ-9 Over the last 2 weeks, how often have you been bothered by any of the following problems? 1. Little interest or pleasure in doing things: not at all 2. Feeling down, depressed, or hopeless: not at all 3. Trouble falling or staying asleep, or sleeping too much: not at all 4. Feeling tired or having little energy: several days 5. Poor appetite or overeating: not at all 6. Feeling bad about yourself - or that you are a failure or have let yourself or your family down: not at all 7. Trouble concentrating on things, such as reading the newspaper or watching television: not at all 8. Moving or speaking so slowly that other people could have noticed. Or the opposite - being so fidgety or restless that you have been moving around a lot more than usual: not at all 9. Thoughts that you would be better off or of hurting yourself in some way: not at all Total score: 1 Source: Developed by Drs. Beto Mclean, Flora Adams, Alf Victor and colleagues, with an educational ana maria from [employer]. Thrive Questionnaire Date Thrive assessed: 08/06/24 I am a: Patient What is your living situation today?: I have a steady place to live Within the past 12 months, did the food you bought not last and you didn't have the money to get more?: Never true Within the past 12 months, did you worry whether your food would run out before you got money to buy more?: Never true Do you have trouble paying for medicines?: No Do you have trouble getting transportation to medical appointments?: No Do you have trouble paying your heating and electricity bill?: No Do you have trouble taking care of your child, family member or friend?: No Do you have trouble with day-to-day activities such as bathing, preparing meals, shopping, managing finances, etc.?: No Are you currently unemployed and looking for a job?: No Are you interested in more education?: No Please select the resources that you would like help with: None Currently or been in a relationship where the following occur: No concerns reported THRIVE Score: 0 AUDIT C Alcohol Use Questionnaire (AUDIT-C) 1. How often do you have a drink containing alcohol?: Monthly or less 2. How many drinks containing alcohol do you have on a typical day when you are drinking?: 1 or 2 3. How often do you have six or more drinks on one occasion?: Never Total Score: 1 ANNELISE-7 AMB Questionnaire ANNELISE-7 Date ANNELISE - 7 assessed: 03/27/24 Feeling nervous, anxious, or on edge: 0 = Not at all Not being able to stop or control worryin = Several days Worrying too much about different things: 1 = Several days Trouble relaxin = Not at all Being so restless that it is hard to sit still: 0 = Not at all Becoming easily annoyed or irritable: 1 = Several days Feeling afraid as if something awful might happen: 0 = Not at all Total ANNELISE-7 score (0-4 normal; 5-9 mild; 10-14 moderate; 15-21 severe): 3 Source: Developed by Drs. Beto Mclean, Flora Adams, Alf Victor and colleagues, with an educational ana maria from [employer]. Physical exam (Primary Care) Vital Signs: Last Vital Signs Temp 97.5 F 08/13/24 09:53 Pulse 58 08/13/24 09:53 Resp 18 08/13/24 09:53 BP 102/70 08/13/24 09:53 Pulse Ox 98 08/13/24 09:53 Oxygen Delivery Method Room Air 08/13/24 09:53 BMI result Body Mass Index 40.2 Tobacco/Smoking Status: Tobacco use Status Tobacco use date assessed 08/13/24 08/13/24 09:58 Patient Tobacco Use Status Former Tobacco user 08/13/24 09:53 e-Cigarette/Vaping Use Never Used 08/13/24 09:53 PHQ-9: PHQ-9 Score PHQ-9: Total score 1 08/13/24 09:53 Thrive Assessment: Date of Thrive Assessment Date Thrive assessed 08/06/24 08/13/24 09:53 Currently or been in a relationship where the following occur: No concerns reported Coding Level of Care Code Est Pt Level 3 (49853) Diagnoses CKD (chronic kidney disease) N18.9 Microscopic hematuria R31.29 HTN (hypertension) I10 Assessment & Plan Assessment & Plan (1) CKD (chronic kidney disease): Code(s): N18.9 - Chronic kidney disease, unspecified Category: Medical (2) Microscopic hematuria: Code(s): R31.29 - Other microscopic hematuria Category: Medical (3) HTN (hypertension): Code(s): I10 - Essential (primary) hypertension Category: Medical Plan . Orders: Referrals Nephrology Referral N18.9 - Chronic kidney disease, unspecified Medications: New fluticasone propion-salmeterol 500-50 mcg/dose (Advair Diskus) 1 inh inhalation BID 60 ea 0RF
[2024-08-13 09:53] VITALS: BP 102/70; PULSE 58; RESP 18; TEMP 36.4; O2SAT 98; BMI 40.2
== END 2024-08-13 10:35 | disposition home or self-care (01) ==
PROVIDERS: PCP Nurse Practitioner Family; Visit Provider Nurse Practitioner Family
DX: I12.9 Hypertensive chronic kidney disease with stage 1 through stage 4 chronic kidney disease, or unspecified chronic kidney disease (principal); N18.9 Chronic kidney disease, unspecified; R31.29 Other microscopic hematuria

== ENCOUNTER → 2024-08-13 09:48 | Outpatient (BNVA) | payer MEDICARE, SELFPAY | PROVIDERS: PCP Nurse Practitioner Family; Visit Provider Nurse Practitioner Family | DX: I12.9 Hypertensive chronic kidney disease with stage 1 through stage 4 chronic kidney disease, or unspecified chronic kidney disease (principal); N18.9 Chronic kidney disease, unspecified; R31.29 Other microscopic hematuria | CPT/HCPCS: 99212 ==

== ENCOUNTER 2024-08-22 10:10 | Outpatient (REF) | payer MEDICARE, SELFPAY ==
[2024-08-22 13:01] LABS: Urine Cytology See Pathology rpt
[2024-08-22 13:40] LABS: Color Urine Yellow; Glucose Urine UA Negative (Negative); Leukocyte Esterase Urine Negative (Negative); Nitrite Urine Negative (Negative); PH 5.5 (5.0-9.0); Urine Blood Negative (Negative); Urine Ketones Negative (Negative); Urine Protein Negative (Neg-Trace)
[2024-08-22 13:42] LABS: Appearance Urine Clear
== END 2024-08-22 10:11 | disposition home or self-care (01) ==
LOC: HO.HMGCLNP 10:10
PROVIDERS: PCP Nurse Practitioner Family; Visit Provider Nurse Practitioner Family
DX: R31.29 Other microscopic hematuria (principal)
CPT/HCPCS: 81003; 88112

== ENCOUNTER 2024-09-03 09:14 | Outpatient (AMB) | payer MEDICARE, SELFPAY ==
--- NOTE | 2024-09-03 09:19 | HO.NEPHOV_ITS ---
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 She has been on multiple BP lowering medications and her blood pressure control has significantly improved under current management. Recently, microhematuria was identified during evaluations. Despite recommendations, the patient had refused a urology referral for cystoscopy. She has undergone a CT urogram which showed a benign renal cyst. She denies renal calculi, senosri neural deafness, flank pain, fever, or chills, edema, recurrent sore throat, epistaxis, hemoptysis, hemetemesis or melena. She does not have any macroscopic hematuria during any URI. She is not on any anticoagulation and does not have froth ot foam in the urine or proteinuria. Her last serum creatinine was 1.26 [facility] Medical History (Updated 09/27/24 @ 11:35 by Mckinley Hodges, [facility]) Gout Postmenopausal Bilateral Achilles tendonosis COPD (chronic obstructive pulmonary disease) Surgical History Hx of cholecystectomy History of total hysterectomy Family History Father No problems noted. Mother No problems noted. Sister No problems noted. Sister No problems noted. Son No problems noted. Daughter No problems noted. Social History Household Members: Spouse Housing: House Alcohol intake: never Patient Tobacco Use Status: Former Tobacco user Years Smoked: 14 years ago e-Cigarette/Vaping Use: Never Used Second Hand Smoke Exposure: No service: No Current occupational status: retired Current occupation: right hand dominant Cognitive needs: No Hearing needs: No Vision needs: Yes Review of Systems Const All systems reviewed & are unremarkable except as noted in HPI and below Physical Exam Vital Signs: Last Vital Signs Pulse 72 09/03/24 09:21 BP 142/74 H 09/03/24 09:21 Pulse Ox 98 09/03/24 09:21 Oxygen Delivery Method Room Air 09/03/24 09:21 BMI result Body Mass Index 40.0 Const General: comfortable and no acute distress Orientation/consciousness: patient oriented x3 HEENT Head: Yes normocephalic Mouth: Normal oral and palatal mucosa present Eyes EOM: EOMs intact bilaterally Neck Neck: Yes supple Resp Auscultation: clear to auscultation bilaterally Cardio Jugular venous distension: no JVD Rate: regular rate GI Palpation (GI): Soft to palpation Auscultation: normal bowel sounds General: Yes no CVA tenderness Back/Spine/Pelvis Back: no CVA tenderness Skin General skin exam: no rashes or lesions noted Neuro General: patient oriented x3 and moves all extremities Extrem General: Yes no pedal edema Results Reviewed Nephrology Results: Hgb 12.7 g/dl (12.0-16.0) 08/01/24 WBC 5.3 X10*3/uL (4.8-10.8) 08/01/24 Plt Count 175 X10*3/uL (160-400) 08/01/24 Sodium 141 mmol/L (135-145) 08/01/24 Potassium 4.6 mmol/L (3.3-5.1) 08/01/24 Chloride 109 mmol/L (96-108) H 08/01/24 Carbon Dioxide 25 mmol/L (22-29) 08/01/24 BUN 32 mg/dL (9-16) H 08/01/24 Creatinine 1.26 mg/dL (0.5-1.4) 08/01/24 Calcium 9.5 mg/dL (8.4-10.2) 08/01/24 Urine Protein Negative mg/dL (Neg-Trace) 08/22/24 Assessment & Plan Assessment & Plan (1) Microscopic hematuria: Code(s): R31.29 - Other microscopic hematuria Category: Medical (2) HTN (hypertension): Code(s): I10 - Essential (primary) hypertension Category: Medical Qualifiers: Hypertension type: primary hypertension Qualified Code(s): I10 - Essential (primary) hypertension (3) CKD stage 3a, GFR 45-59 ml/min: Code(s): N18.31 - Chronic kidney disease, stage 3a Category: Medical (4) Renal cyst: Code(s): N28.1 - Cyst of kidney, acquired Category: Medical Plan She was found to have incidental microscopic hematuria but never had cystoscopy. She does not get recurrent UTI and does not have renal calculi. She does not have any family H/O microscopic hematuria , proteinuria, ESRD or renal transplantation. She has no flank pain, edema, sensori neural deafness, macroscopic hematuria or proteinuria. Differential diagnosis includes IgA, Alports or thin membrane disease. Her IgA levels are normal and her renal function is stable. She has a renal cyst which does not appear complex. She is on ACEI which she is tolerating well. Her BP needs to be maintained at goal and she should avoid NSAID's. I ordered follow up blood work. I did not initiate her on any new medications but explained all of the above. Answered all questions. F/U given Orders: Orders UA and rflx microscopic 4 Months N18.31 - Chronic kidney disease, stage 3a, R31.29 - Other microscopic hematuria, I10 - Essential (primary) hypertension Creatinine 4 Months N18.31 - Chronic kidney disease, stage 3a, R31.29 - Other microscopic hematuria, I10 - Essential (primary) hypertension Protein Creatinine Ratio, Ur 4 Months N18.31 - Chronic kidney disease, stage 3a, R31.29 - Other microscopic hematuria, I10 - Essential (primary) hypertension Blood Urea Nitrogen 4 Months N18.31 - Chronic kidney disease, stage 3a, R31.29 - Other microscopic hematuria, I10 - Essential (primary) hypertension Electrolytes 4 Months N18.31 - Chronic kidney disease, stage 3a, R31.29 - Other microscopic hematuria, I10 - Essential (primary) hypertension Calcium 4 Months N18.31 - Chronic kidney disease, stage 3a, R31.29 - Other microscopic hematuria, I10 - Essential (primary) hypertension Coding Level of Care Code New Pt Level 4 (13348) Diagnoses Microscopic hematuria R31.29 Primary hypertension I10 Hypertension type: primary hypertension CKD stage 3a, GFR 45-59 ml/min N18.31 Renal cyst N28.1
[2024-09-03 09:21] VITALS: BP 142/74; PULSE 72; O2SAT 98; BMI 40.0
== END 2024-09-03 10:02 | disposition home or self-care (01) ==
PROVIDERS: PCP Nurse Practitioner Family; Referring Provider Nurse Practitioner Family; Visit Provider Internal Medicine Nephrology
DX: R31.29 Other microscopic hematuria (principal); I10 Essential (primary) hypertension; N18.31 Chronic kidney disease, stage 3a; N28.1 Cyst of kidney, acquired
CPT/HCPCS: 99204

== ENCOUNTER → 2024-09-03 09:14 | Outpatient (BNVA) | payer MEDICARE, SELFPAY | PROVIDERS: PCP Nurse Practitioner Family; Referring Provider Nurse Practitioner Family; Visit Provider Internal Medicine Nephrology | DX: R31.29 Other microscopic hematuria (principal); N28.1 Cyst of kidney, acquired; I12.9 Hypertensive chronic kidney disease with stage 1 through stage 4 chronic kidney disease, or unspecified chronic kidney disease; N18.31 Chronic kidney disease, stage 3a | CPT/HCPCS: 99202 ==

== ENCOUNTER 2024-12-22 08:50 | Outpatient (REF) | payer OTHER, SELFPAY ==
[2024-12-22 13:08] LABS: Appearance Urine Clear; Color Urine Yellow; Glucose Urine UA Negative (Negative); Leukocyte Esterase Urine Negative (Negative); Nitrite Urine Negative (Negative); Urine Blood Negative (Negative); Urine Ketones Negative (Negative); Urine Protein Negative (Neg-Trace)
[2024-12-22 13:40] LABS: Anion Gap 12 (12-20); Blood Urea Nitrogen 36 mg/dL (9-16); Calcium 9.3 mg/dL (8.4-10.2); Carbon Dioxide 26 mmol/L (22-29); Chloride 108 mmol/L (96-108); Estimated Glomerular Filt Rate 47; Potassium 4.5 mmol/L (3.3-5.1); Sodium 141 mmol/L (135-145)
[2024-12-22 13:43] LABS: Creatinine Urine 35.91 mg/dL; Total Protein Urine Random < 7 mg/dL (<12)
== END 2024-12-22 08:51 | disposition home or self-care (01) ==
LOC: HO.HMGCLDS 08:50
PROVIDERS: PCP Nurse Practitioner Family; Visit Provider Internal Medicine Nephrology
DX: N18.31 Chronic kidney disease, stage 3a (principal); R31.29 Other microscopic hematuria; I10 Essential (primary) hypertension
CPT/HCPCS: 36415; 80051; 81003; 82310; 82565; 82570; 84156; 84520

== ENCOUNTER 2024-12-25 07:57 | Outpatient (AMB) | payer MEDICARE, SELFPAY ==
--- NOTE | 2024-12-25 08:03 | A.OFFPC_ITS ---
Vital Signs 12/25/24 08:08 Height 5 ft 4 in Weight 235 lb BMI 40.3 BP 112/78 Blood Pressure Location Lt brachial Position Sitting Pulse 72 Pulse Source Pulse Oximeter Pulse Oximetry (%) 98 Oxygen Delivery Method Room Air Intake Visit Reasons: ANNUAL PE - see comments Prop Maker Required: No Accompanied by: Self / Same As Patient Allergies No Known Allergies Allergy (Verified 12/25/24 08:08) Medication List - Last Reconciled 12/25/24 [facility] albuterol sulfate 90 mcg/actuation 1 inh inhalation QID PRN atenolol 25 mg PO DAILY atorvastatin 10 mg PO DAILY bupropion HCl XL 300 mg PO DAILY buspirone 7.5 mg PO ONCE PRN 90 days chlorthalidone 25 mg PO DAILY cholecalciferol (vitamin D3) 25 mcg PO DAILY diclofenac sodium 1% 4 grams topical QID docusate sodium (Stool Softener) 50 mg PO DAILY fluticasone propion-salmeterol 500-50 mcg/dose USE 1 INHALATION BY MOUTH INHALED TWICE DAILY gabapentin 200 mg (2 x 100 mg) PO TID 90 days lisinopril 40 mg PO DAILY 90 days Tobacco use date assessed: 08/13/24 Fall risk assessment: No Falls in past year Last assessed Fall Risk: 12/25/24 Dental Screening Dental Screen Date: 08/13/24 HPI ANNUAL PE - see comments HPI0 Details History of Present Illness The patient is a 74-year-old female presenting for a physical exam. She has a history of chronic kidney disease and is currently under the care of a physician industrial. She is weaning off NSAIDs due to renal issues, and her gabapentin dosage is being increased to manage neuropathy. The patient also has a history of chronic obstructive pulmonary disease (COPD) and is currently using fluticasone/salmeterol. Due to the cost, a switch to Symbicort is planned, which is expected to be more effective and affordable through insurance. She quit smoking over 20 years ago, which disqualifies her from low-dose CT scans for lung cancer screening. The patient is morbidly obese, which complicates auscultation, but her lungs are clear. Preventative care measures include a mammogram, which she previously declined but is now willing to undergo, and a bone density screening, which will be ordered. reginald is [facility] Health Maintenance - Mammogram: Previously declined, now wi lling to undergo - Bone density screening: To be ordered - Weight loss: Discussed importance Social History - Smoking: Quit over 20 years ago Review of Systems - Neurological: Reports ongoing chronic pain due to neuropathy Physical Exam General: Cooperative, healthy appearing, comfortable, no acute distress and well developed, morbidly obese Orientation: Patient oriented x3 Limitations: No limitations Head: Normal to inspection Ears: Hearing grossly normal bilaterally Nose: Normal external nose present Face and sinus: Normal facial exam Eyes: Appearance normal, both eyes and all related structures Neck: Normal visual inspection and Yes full ROM Respiratory: Lungs are actually fairly clear Cardiovascular: Regular rate and rhythm. S1-S2, though somewhat difficult to auscultate GI: Normal to inspection. Soft to palpation and nontender : testicles without masses/lesions and no hernias appreciated Skin: No rashes or lesions noted Neuro: Positive patellar reflexes Extremities: Normal to inspection Results - Cologuard: Up-to-date Plan The patient will have a mammogram and bone density screening ordered as part of her preventative care measures. For her chronic kidney disease, she will continue to be monitored by nephrology, and her gabapentin dosage will be increased to manage neuropathy while she weans off NSAIDs. Regarding her COPD, a switch from fluticasone/salmeterol to Symbicort is planned to improve efficacy and reduce costs through insurance. Weight loss was discussed as an important health goal, given her morbid obesity. Patient was informed and verbally consented to the use of an ambient scribe for clinic note documentation during this visit. Discussion Notes I discussed with the patient the importance of undergoing a mammogram and bone density screening, which she agreed to proceed with. We reviewed her chronic kidney disease management, emphasizing the need to wean off NSAIDs and increase gabapentin for neuropathy. For her COPD, I explained the benefits of switching to Symbicort, which should be more cost-effective and potentially more effective. We also discussed the importance of weight loss as a health goal. Patient Instructions - Schedule and complete a mammogram and bone density screening. - Continue to follow up with nephrology for chronic kidney disease management. - Begin using Symbicort for COPD as pres cribed. - Gradually reduce NSAID use and increas e gabapentin dosage as directed. - Focus on weight loss through diet and exercise. [facility] Medical History Gout Postmenopausal Bilateral Achilles tendonosis COPD (chronic obstructive pulmonary disease) Surgical History Hx of cholecystectomy History of total hysterectomy Family History Father No problems noted. Mother No problems noted. Sister No problems noted. Sister No problems noted. Son No problems noted. Daughter No problems noted. Social History Household Members: Spouse Housing: House Alcohol intake: never Patient Tobacco Use Status: Former Tobacco user Years Smoked: 14 years ago e-Cigarette/Vaping Use: Never Used Second Hand Smoke Exposure: No service: No Current occupational status: retired Current occupation: right hand dominant Cognitive needs: No Hearing needs: No Vision needs: Yes Questionnaire Thrive Questionnaire Date Thrive assessed: 08/06/24 I am a: Patient What is your living situation today?: I have a steady place to live Within the past 12 months, did the food you bought not last and you didn't have the money to get more?: Never true Within the past 12 months, did you worry whether your food would run out before you got money to buy more?: Never true Do you have trouble paying for medicines?: No Do you have trouble getting transportation to medical appointments?: No Do you have trouble paying your heating and electricity bill?: No Do you have trouble taking care of your child, family member or friend?: No Do you have trouble with day-to-day activities such as bathing, preparing meals, shopping, managing finances, etc.?: No Are you currently unemployed and looking for a job?: No Are you interested in more education?: No Please select the resources that you would like help with: None Currently or been in a relationship where the following occur: No concerns reported THRIVE Score: 0 ANNELISE-7 AMB Questionnaire ANNELISE-7 Date ANNELISE - 7 assessed: 12/25/24 Feeling nervous, anxious, or on edge: 0 = Not at all Not being able to stop or control worryin = Several days Worrying too much about different things: 1 = Several days Trouble relaxin = Not at all Being so restless that it is hard to sit still: 0 = Not at all Becoming easily annoyed or irritable: 1 = Several days Feeling afraid as if something awful might happen: 0 = Not at all Total ANNELISE-7 score (0-4 normal; 5-9 mild; 10-14 moderate; 15-21 severe): 3 Source: Developed by Drs. Beto Mclean, Flora Adams, Alf Victor and colleagues, with an educational ana maria from [employer]. ANNELISE-7 Assessment Billing ANNELISE-7 Assessment Tool: ANNELISE-7 Assessment 39420 Physical exam (Primary Care) Vital Signs: Last Vital Signs Pulse 72 12/25/24 08:08 BP 112/78 12/25/24 08:08 Pulse Ox 98 12/25/24 08:08 Oxygen Delivery Method Room Air 12/25/24 08:08 BMI result Body Mass Index 40.3 Tobacco/Smoking Status: Tobacco use Status Tobacco use date assessed 08/13/24 12/25/24 08:03 Patient Tobacco Use Status Former Tobacco user 12/25/24 08:03 e-Cigarette/Vaping Use Never Used 12/25/24 08:03 Thrive Assessment: Date of Thrive Assessment Date Thrive assessed 08/06/24 12/25/24 08:03 Currently or been in a relationship where the following occur: No concerns reported Coding Level of Care Code Est Pt Prev Care >65y(82097) Diagnoses Physical exam Z00.00 Vitamin D deficiency E55.9 Postmenopausal Z78.0 CKD stage 3a, GFR 45-59 ml/min N18.31 COPD (chronic obstructive pulmonary disease) J44.9 Morbid obesity E66.01 Additional Codes ANNELISE-7 Assessment Billing - ANNELISE-7 Assessment Tool: ANNELISE-7 Assessment 26682 ([id number]) Assessment & Plan Assessment & Plan (1) Physical exam: Code(s): Z00.00 - Encounter for general adult medical examination without abnormal findings Category: Medical (2) Vitamin D deficiency: Code(s): E55.9 - Vitamin D deficiency, unspecified Category: Medical (3) Postmenopausal: Code(s): Z78.0 - Asymptomatic menopausal state Category: Medical (4) CKD stage 3a, GFR 45-59 ml/min: Code(s): N18.31 - Chronic kidney disease, stage 3a Category: Medical (5) COPD (chronic obstructive pulmonary disease): Code(s): J44.9 - Chronic obstructive pulmonary disease, unspecified Category: Medical (6) Morbid obesity: Code(s): E66.01 - Morbid (severe) obesity due to excess calories Category: Medical Plan . Orders: Orders Complete Blood Count Auto Diff Today Z00.00 - Encounter for general adult medical examination without abnormal findings Comprehensive Stephenson. Panel Fast Today Z00.00 - Encounter for general adult medical examination without abnormal findings UA CC w/rflx Micro + Cult Today Z00.00 - Encounter for general adult medical examination without abnormal findings TSH reflex Free T4 Today Z00.00 - Encounter for general adult medical examinati on without abnormal findings Lipid Panel Today Z00.00 - Encounter for general adult medical examination without abnormal findings Vitamin D 25-OH Total Today E55.9 - Vitamin D deficiency, unspecified MM screening mammo BI Today Z12.31 - Encounter for screening mammogram for malignant neoplasm of breast XR DEXA axial skeleton Today E55.9 - Vitamin D deficiency, unspecified, Z78.0 - Asymptomatic menopausal state Medications: New budesonide-formoterol 160-4.5 mcg/actuation (Symbicort) 1 inh inhalation BID 10.2 grams 0RF Changed From gabapentin 300 mg (3 x 100 mg) PO TID 90 days 810 caps 1RF To gabapentin 300 mg PO TID 270 caps 1RF 90 days From gabapentin 200 mg (2 x 100 mg) PO TID 90 days 540 caps 1RF To gabapentin 300 mg (3 x 100 mg) PO TID 90 days 810 caps 1RF
[2024-12-25 08:08] VITALS: BP 112/78; PULSE 72; O2SAT 98; BMI 40.3
== END 2024-12-25 09:12 | disposition home or self-care (01) ==
PROVIDERS: PCP Nurse Practitioner Family; Visit Provider Nurse Practitioner Family
DX: Z00.00 Encounter for general adult medical examination without abnormal findings (principal); N18.31 Chronic kidney disease, stage 3a; E66.01 Morbid (severe) obesity due to excess calories; Z68.41 Body mass index [BMI] 40.0-44.9, adult; J44.9 Chronic obstructive pulmonary disease, unspecified; E55.9 Vitamin D deficiency, unspecified; Z78.0 Asymptomatic menopausal state

== ENCOUNTER → 2024-12-25 07:57 | Outpatient (BNVA) | payer MEDICARE, SELFPAY | PROVIDERS: PCP Nurse Practitioner Family; Visit Provider Nurse Practitioner Family | DX: Z00.00 Encounter for general adult medical examination without abnormal findings (principal); E55.9 Vitamin D deficiency, unspecified; N18.31 Chronic kidney disease, stage 3a; J44.9 Chronic obstructive pulmonary disease, unspecified; Z78.0 Asymptomatic menopausal state; E66.01 Morbid (severe) obesity due to excess calories; Z68.41 Body mass index [BMI] 40.0-44.9, adult; Z71.3 Dietary counseling and surveillance; Z87.891 Personal history of nicotine dependence | CPT/HCPCS: 96127; 99397 ==

== ENCOUNTER 2025-01-21 14:05 | Outpatient (AMB) | payer MEDICARE, SELFPAY ==
--- NOTE | 2025-01-21 14:07 | HO.NEPHOV ---
Vital Signs 01/21/25 14:09 Height 5 ft 4 in Weight 231 lb 6 oz BMI 39.7 BP 130/74 Blood Pressure Location Rt brachial Position Sitting Pulse 66 Pulse Source Pulse Oximeter Pulse Oximetry (%) 96 Oxygen Delivery Method Room Air Intake Visit Reasons: CKD-LVM Coffee Urn Attendant Required: No Accompanied by: Spouse Allergies No Known Allergies Allergy (Verified 01/21/25 14:08) HPI Comments Details: I had the pleasure of seeing Saundra who is a 74-year-old female in consultation for H/O M/S hematuria, CKD and hypertension. She has been on multiple BP lowering medications and her blood pressure control has significantly improved under current management. Recently, microhematuria was identified during evaluations. Despite recommendations, the patient had refused a urology referral for cystoscopy. She has undergone a CT urogram which showed a benign renal cyst. She denies renal calculi, senosri neural deafness, flank pain, fever, or chills, edema, recurrent sore throat, epistaxis, hemoptysis, hemetemesis or melena. She does not have any macroscopic hematuria during any URI. She is not on any anticoagulation and does not have froth ot foam in the urine or proteinuria. Her last serum creatinine is stable. She is having a lot of pain from OA PFSH Medical History Gout Postmenopausal Bilateral Achilles tendonosis COPD (chronic obstructive pulmonary disease) Surgical History Hx of cholecystectomy History of total hysterectomy Family History Father No problems noted. Mother No problems noted. Sister No problems noted. Sister No problems noted. Son No problems noted. Daughter No problems noted. Social History Household Members: Spouse Housing: House Alcohol intake: never Patient Tobacco Use Status: Former Tobacco user Years Smoked: 14 years ago e-Cigarette/Vaping Use: Never Used Second Hand Smoke Exposure: No service: No Current occupational status: retired Current occupation: right hand dominant Cognitive needs: No Hearing needs: No Vision needs: Yes Review of Systems Const All systems reviewed & are unremarkable except as noted in HPI and below Physical Exam Vital Signs: Last Vital Signs Pulse 66 01/21/25 14:09 BP 130/74 01/21/25 14:09 Pulse Ox 96 01/21/25 14:09 Oxygen Delivery Method Room Air 01/21/25 14:09 BMI result Body Mass Index 39.7 Const General: comfortable and no acute distress Orientation/consciousness: patient oriented x3 HEENT Head: Yes normocephalic Mouth: Normal oral and palatal mucosa present Eyes EOM: EOMs intact bilaterally Neck Neck: Yes supple Resp Auscultation: clear to auscultation bilaterally Cardio Jugular venous distension: no JVD Rate: regular rate GI Palpation (GI): Soft to palpation Auscultation: normal bowel sounds General: Yes no CVA tenderness Back/Spine/Pelvis Back: no CVA tenderness Skin General skin exam: no rashes or lesions noted Neuro General: patient oriented x3 and moves all extremities Extrem General: Yes no pedal edema Results Reviewed Nephrology Results: Sodium, (135-145) 141 mmol/L 12/22/24 Potassium, (3.3-5.1) 4.5 mmol/L 12/22/24 Chloride, (96-108) 108 mmol/L 12/22/24 Carbon Dioxide, (22-29) 26 mmol/L 12/22/24 BUN, (9-16) 36 mg/dL H 12/22/24 Creatinine, (0.5-1.4) 1.13 mg/dL 12/22/24 Calcium, (8.4-10.2) 9.3 mg/dL 12/22/24 Urine Protein, (Neg-Trace) Negative mg/dL 12/22/24 Urine Creatinine 35.91 mg/dL 12/22/24 Protein/Creatinin Ratio TNP 12/22/24 Assessment & Plan Assessment & Plan (1) HTN (hypertension): Code(s): I10 - Essential (primary) hypertension Category: Medical Qualifiers: Hypertension type: primary hypertension Qualified Code(s): I10 - Essential (primary) hypertension (2) CKD stage 3a, GFR 45-59 ml/min: Code(s): N18.31 - Chronic kidney disease, stage 3a Category: Medical Plan She was found to have incidental microscopic hematuria but never had cystoscopy. She does not get recurrent UTI and does not have renal calculi. She does not have any family H/O microscopic hematuria , proteinuria, ESRD or renal transplantation. She has no flank pain, edema, sensori neural deafness, macroscopic hematuria or proteinuria. Differential diagnosis includes IgA, Alports or thin membrane disease. Her IgA levels are normal and her renal function is stable. She has a renal cyst which does not appear complex. She is on ACEI which she is tolerating well. Her BP needs to be maintained at goal and she should avoid NSAID's. I ordered follow up blood work. I did not initiate her on any new medications but explained all of the above. Answered all questions. F/U given Orders: Orders Creatinine 3 Months I10 - Essential (primary) hypertension, N18.31 - Chronic kidney disease, stage 3a Blood Urea Nitrogen 3 Months I10 - Essential (primary) hypertension, N18.31 - Chronic kidney disease, stage 3a Electrolytes 3 Months I10 - Essential (primary) hypertension, N18.31 - Chronic kidney disease, stage 3a Coding Level of Care Code Est Pt Level 4 (56878) Diagnoses Primary hypertension I10 Hypertension type: primary hypertension CKD stage 3a, GFR 45-59 ml/min N18.31
[2025-01-21 14:09] VITALS: BP 130/74; PULSE 66; O2SAT 96; BMI 39.7
== END 2025-01-21 14:37 | disposition home or self-care (01) ==
LOC: HO.HKA 14:05
PROVIDERS: PCP Nurse Practitioner Family; Visit Provider Internal Medicine Nephrology
DX: I10 Essential (primary) hypertension (principal); N18.31 Chronic kidney disease, stage 3a
CPT/HCPCS: 99214

== ENCOUNTER → 2025-01-21 14:05 | Outpatient (BNVA) | payer MEDICARE, SELFPAY | PROVIDERS: PCP Nurse Practitioner Family; Visit Provider Internal Medicine Nephrology | DX: I12.9 Hypertensive chronic kidney disease with stage 1 through stage 4 chronic kidney disease, or unspecified chronic kidney disease (principal); N18.31 Chronic kidney disease, stage 3a | CPT/HCPCS: 99212 ==

== ENCOUNTER 2025-03-19 08:05 | Outpatient (REF) | payer MEDICARE, SELFPAY ==
--- NOTE | ~2025-03-19 | MM_ITS ---
EXAMINATION: DXA BONE DENSITY AXIAL HISTORY: E55.9 - Vitamin D deficiency, unspecified TECHNIQUE: Qlibri Dual energy absorptiometry (DEXA) of the lumbar spine, total left hip, and femoral neck was performed. COMPARISON: Comparison is made with the prior examination dated 02/15/2022. FINDINGS: The bone mineral density of the lumbar spine is 1.146 g/cm2, corresponding to a T-score of -0.2, and a Z-score of 0.4. This is indicative of normal bone mineral density. This represents a BMD change of -2.8% compared to the prior exam. This is not statistically significant. The bone mineral density of the left total hip is 1.001 g/cm2, corresponding to a T-score of -0.1, and a Z-score of 0.8. This is indicative of normal bone mineral density. This represents a BMD change of -2.0% compared to the prior exam. This is not statistically significant. The bone mineral density of the left femoral neck is 0.881 g/cm2, corresponding to a T-score of -1.1, and a Z-score of 0.0. This is indicative of osteopenia. This represents a BMD change of -8.6% compared to the prior exam. FRACTURE RISK: The FRAX index suggests a ten year probability of major osteoporotic fracture of 9.0%, and of hip fracture 2.1%. MM/XR DEXA axial skeleton IMPRESSION: Based on bone mineral density, and according to World Health Organization (WHO) criteria, the diagnosis is consistent with osteopenia. Statistically, 68% of repeat scans fall within 1 SD (+/- 0.010 g/cm2 for AP spine L1-L4) and 1 SD (+/- 0.012 g/cm2 for femur total) FRAX is a trademark of the [employer]'s [place] [facility] Metabolic Bone Disease, a World Health Organization (WHO) Collaborating Center. Electronically signed by: Beto Ramos MD 03/19/2025 09:14 AM EDT
--- NOTE | ~2025-03-19 | MM_ITS ---
EXAMINATION: MM SCREENING DIGITAL BREAST TOMOSYNTHESIS, BILATERAL CLINICAL INFORMATION: Screening. Asymptomatic. COMPARISON: Mammography: Comparison is made with available priors TECHNIQUE: Digital breast mammography with tomosynthesis is performed in both the craniocaudal and mediolateral oblique views along with computer-aided detection (CAD). FINDINGS: The breasts are almost entirely fatty (ACR BI-RADS breast composition Category a). There are no significant masses, abnormal calcifications, or other abnormalities. MM/MM tomosynthesis screening BI IMPRESSION: No mammographic evidence of malignancy. ASSESSMENT: BI-RADS BI-RADS 1 - Negative RECOMMENDATION: Routine annual mammography screening. 1 year F/U This examination should not preclude the clinical evaluation of a suspicious palpable abnormality. This patient's information was entered into a reminder system with a target due date for their next mammogram. Electronically signed by: Torri Christiansen DO 03/23/2025 05:59 PM EDT
== END 2025-03-19 08:06 | disposition home or self-care (01) ==
LOC: HO.MAMMO 08:05
PROVIDERS: PCP Nurse Practitioner Family; Visit Provider Nurse Practitioner Family
DX: Z12.31 Encounter for screening mammogram for malignant neoplasm of breast (principal); Z13.820 Encounter for screening for osteoporosis; Z78.0 Asymptomatic menopausal state
CPT/HCPCS: 77063; 77067; 77080

== ENCOUNTER → 2025-03-19 08:45 | Outpatient (BNV) | payer MEDICARE, SELFPAY | PROVIDERS: PCP Nurse Practitioner Family; Visit Provider Radiology Diagnostic Radiology | DX: E28.39 Other primary ovarian failure (principal) | CPT/HCPCS: 77080 ==

== ENCOUNTER 2025-04-16 09:21 | Outpatient (REF) | payer MEDICARE, SELFPAY ==
[2025-04-16 13:27] LABS: MANUAL DIFF FLAG NO
[2025-04-16 14:09] LABS: Hematocrit 42.3 % (37.0-47.0); Hemoglobin 13.4 g/dl (12.0-16.0); Imm Gran Abs Auto 0.05 X10*3/uL (0.00-0.03); Imm Gran Pct Auto 0.8 % (0.0-0.4); Lymphocytes Absolute Auto 1.1 X10*3/uL (1.2-4.9); Mean Corpuscular HGB Conc 31.7 g/dl (31.0-35.0); Mean Corpuscular Hemoglobin 28.3 pg (27.0-33.0); Mean Corpuscular Volume 89.2 fL (80.0-98.0); NRBC Abs Auto 0.000 X10*3/uL (0.0-0.012); NRBC Pct Auto 0.0 /100WBC (0.0-0.2); Platelet Count 186 X10*3/uL (160-400); Red Blood Count 4.74 X10*6/uL (4.20-5.50); White Blood Count 6.1 X10*3/uL (4.8-10.8)
[2025-04-16 14:15] LABS: Alanine Aminotransferase 20 U/L (0-31); Albumin Level 4.0 g/dL (3.5-5.0); Alkaline Phosphatase 91 U/L (39-117); Anion Gap 12 (12-20); Aspartate Amino Transferase 26 U/L (5-31); Blood Urea Nitrogen 33 mg/dL (9-16); Calcium 9.6 mg/dL (8.4-10.2); Carbon Dioxide 28 mmol/L (22-29); Chloride 107 mmol/L (96-108); Cholesterol 126 mg/dL (<200); Estimated Glomerular Filt Rate 41; HDL Cholesterol 45 mg/dL (>40); Potassium 4.7 mmol/L (3.3-5.1); Sodium 142 mmol/L (135-145); Total Protein 6.8 g/dL (6.5-8.0); Triglycerides 117 mg/dL (<150)
[2025-04-16 16:38] LABS: Appearance Urine Cloudy; Glucose Urine UA Negative (Negative); PH 6.0 (5.0-9.0); Specific Gravity - Urine 1.010 (1.005-1.025); UMIC TRIGGER UACC YES
[2025-04-16 16:47] LABS: UACC Culture Trigger YES
== END 2025-04-16 09:22 | disposition home or self-care (01) ==
LOC: HO.HMGCLDS 09:21
PROVIDERS: Absent Provider Internal Medicine Nephrology; PCP Nurse Practitioner Family; Visit Provider Nurse Practitioner Family
DX: Z00.00 Encounter for general adult medical examination without abnormal findings (principal); I12.9 Hypertensive chronic kidney disease with stage 1 through stage 4 chronic kidney disease, or unspecified chronic kidney disease; N18.31 Chronic kidney disease, stage 3a; E55.9 Vitamin D deficiency, unspecified
CPT/HCPCS: 36415; 80053; 80061; 81001; 82306; 84443; 85025; 87086; 87088; 87186

== ENCOUNTER 2025-05-07 08:54 | Outpatient (AMB) | payer MEDICARE, SELFPAY ==
[2025-05-07 08:55] VITALS: BP 114/78; PULSE 73; RESP 16; TEMP 36.8; O2SAT 98; BMI 39.1
--- NOTE | 2025-05-07 08:55 | MHC.PC.OV ---
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 Accompanied by: Self / Same As Patient Is last menstrual period known: No Allergies No Known Allergies Allergy (Verified 05/07/25 09:35) Medication List - Last Reconciled 05/07/25 by NII Angel-ASTRID acetaminophen ER (Tylenol Arthritis Pain) 650 mg PO Q12H albuterol sulfate 90 mcg/actuation 1 inh inhalation QID PRN atenolol 25 mg PO DAILY atorvastatin 10 mg PO DAILY bupropion HCl XL 300 mg PO DAILY buspirone 7.5 mg PO ONCE PRN 90 days chlorthalidone 25 mg PO DAILY cholecalciferol (vitamin D3) 25 mcg PO DAILY diclofenac sodium 1% 4 grams topical QID docusate sodium (Stool Softener) 50 mg PO DAILY fluticasone propion-salmeterol 500-50 mcg/dose USE 1 INHALATION BY MOUTH INHALED TWICE DAILY gabapentin 300 mg PO TID 90 days lisinopril 40 mg PO DAILY 90 days tramadol 50 mg PO BID PRN 30 days Tobacco use date assessed: 05/07/25 Fall risk assessment: No Falls in past year Last assessed Fall Risk: 05/07/25 Dental Screening Dental Screen Date: 08/13/24 HPI 4 months f/up HPI Details Chief Complaint The patient's biggest complaint today is ongoing left hip pain. History of Present Illness The patient is a 74-year-old female presenting for management of hypertension and evaluation of left hip pain. Her blood pressure is currently stable, and she denies any chest pain, increased shortness of breath, headache, or blurred vision. Labs recently resulted The patient's main complaint is ongoing left hip pain, which started after a fall approximately one year ago. She did not receive any treatment at the time of the injury. She takes tramadol for pain and also uses Motrin intermittently, though her compounder sterile products has advised against its continuation. Social History Health Maintenance Review of Systems - Cardiovascular: Denies chest pain. - Respiratory: Denies increased shortness of breath. - Neurological: Denies headache and blurred vision. - Musculoskeletal: Reports ongoing left hip pain and lower back pain. Physical Exam General: Cooperative, healthy appearing, comfortable, no acute distress and well developed, morbidly obese Orientation: Patient oriented x3 Limitations: Limited range of motion during exam because of lower back pain Head: Normal to inspection Ears: Hearing grossly normal bilaterally Nose: Normal external nose present Face and sinus: Normal facial exam Eyes: Appearance normal, both eyes and all related structures Neck: Normal visual inspection and Yes full ROM Respiratory: Normal respiratory effort and able to speak in complete sentences. Clear to auscultation bilaterally Cardiovascular: Regular rate and rhythm. Normal S1 and S2 GI: Normal to inspection. Soft to palpation and nontender Skin: No rashes or lesions noted Neuro: Patient oriented x3 Extremities: Normal to inspection, left lower extremity is not shortened and not externally rotated, no pain with palpation, though pain to left hip with abduction of LLE, + DP Results Plan 1. Left Hip Pain An x-ray of the left hip will be ordered to further evaluate the etiology of the chronic pain. The patient will continue to be prescribed tramadol for pain management. 2. Use Of Nsaids The patient has been advised to discontinue intermittent Motrin use per her compounder sterile products's recommendation. 3. Hypertension The patient's blood pressure is stable, and she denies any acute symptoms. Current management will be continued. Discussion Notes I have discussed with the patient that we will obtain an x-ray of her left hip to investigate her chronic pain. We will continue her prescription for tramadol for pain relief. I also reinforced her compounder sterile products's advice to avoid taking Motrin. Patient Instructions - An x-ray of your left hip will be done to check for the cause of your pain. - Continue to take your tramadol prescription for pain. - Do not take Motrin, as advised by your kidney specialist. [facility] Medical History Gout Postmenopausal Bilateral Achilles tendonosis COPD (chronic obstructive pulmonary disease) Surgical History Hx of cholecystectomy History of total hysterectomy Family History Father No problems noted. Mother No problems noted. Sister No problems noted. Sister No problems noted. Son No problems noted. Daughter No problems noted. Social History Household Members: Spouse Housing: House Alcohol intake: never Patient Tobacco Use Status: Former Tobacco user Years Smoked: 14 years ago e-Cigarette/Vaping Use: Never Used Second Hand Smoke Exposure: No service: No Current occupational status: retired Current occupation: right hand dominant Cognitive needs: No Hearing needs: No Vision needs: Yes Questionnaire PHQ-9 Over the last 2 weeks, how often have you been bothered by any of the following problems? 1. Little interest or pleasure in doing things: not at all 2. Feeling down, depressed, or hopeless: not at all 3. Trouble falling or staying asleep, or sleeping too much: not at all 4. Feeling tired or having little energy: not at all 5. Poor appetite or overeating: not at all 6. Feeling bad about yourself - or that you are a failure or have let yourself or your family down: not at all 7. Trouble concentrating on things, such as reading the newspaper or watching television: not at all 8. Moving or speaking so slowly that other people could have noticed. Or the opposite - being so fidgety or restless that you have been moving around a lot more than usual: not at all 9. Thoughts that you would be better off or of hurting yourself in some way: not at all Total score: 0 Depression Screening Interpretation: Negative Depression Screening Done: Yes 38660 - PHQ-9 Billing: Yes Source: Developed by Drs. Beto Mclean, Flora Adams, Alf Victor and colleagues, with an educational ana maria from [employer]. Thrive Questionnaire Date Thrive assessed: 08/06/24 I am a: Patient What is your living situation today?: I have a steady place to live Within the past 12 months, did the food you bought not last and you didn't have the money to get more?: Never true Within the past 12 months, did you worry whether your food would run out before you got money to buy more?: Never true Do you have trouble paying for medicines?: No Do you have trouble getting transportation to medical appointments?: No Do you have trouble paying your heating and electricity bill?: No Do you have trouble taking care of your child, family member or friend?: No Do you have trouble with day-to-day activities such as bathing, preparing meals, shopping, managing finances, etc.?: No Are you currently unemployed and looking for a job?: No Are you interested in more education?: No Please select the resources that you would like help with: None Currently or been in a relationship where the following occur: No concerns reported THRIVE Score: 0 ANNELISE-7 AMB Questionnaire ANNELISE-7 Date ANNELISE - 7 assessed: 05/07/25 Feeling nervous, anxious, or on edge: 0 = Not at all Not being able to stop or control worryin = Several days Worrying too much about different things: 1 = Several days Trouble relaxin = Not at all Being so restless that it is hard to sit still: 0 = Not at all Becoming easily annoyed or irritable: 1 = Several days Feeling afraid as if something awful might happen: 0 = Not at all Total ANNELISE-7 score (0-4 normal; 5-9 mild; 10-14 moderate; 15-21 severe): 3 Source: Developed by Drs. Beto Mclean, Flora Adams, Alf Victor and colleagues, with an educational ana maria from [employer]. ANNELISE-7 Assessment Billing ANNELISE-7 Assessment Tool: ANNELISE-7 Assessment 07135 Physical exam (Primary Care) Vital Signs: Last Vital Signs Temp 98.2 F 05/07/25 08:55 Pulse 73 05/07/25 08:55 Resp 16 05/07/25 08:55 BP 114/78 05/07/25 08:55 Pulse Ox 98 05/07/25 08:55 BMI result Body Mass Index 39.1 Tobacco/Smoking Status: Tobacco use Status Tobacco use date assessed 05/07/25 05/07/25 09:05 Patient Tobacco Use Status Former Tobacco user 05/07/25 08:57 e-Cigarette/Vaping Use Never Used 05/07/25 08:57 PHQ-9: PHQ-9 Score PHQ-9: Total score 0 05/07/25 09:05 Depression Screening Interpretation: Negative Thrive Assessment: Date of Thrive Assessment Date Thrive assessed 08/06/24 05/07/25 08:57 Currently or been in a relationship where the following occur: No concerns reported Coding Level of Care Code Est Pt Level 3 (25002) Diagnoses Left hip pain M25.552 Primary hypertension I10 Hypertension type: primary hypertension Additional Codes ANNELISE-7 Assessment Billing - ANNELISE-7 Assessment Tool: ANNELISE-7 Assessment 88939 ([id number]) PHQ-9 - 54426 - PHQ-9 Billing: Yes ([id number]) Assessment & Plan Assessment & Plan (1) Left hip pain: Code(s): M25.552 - Pain in left hip Category: Medical (2) HTN (hypertension): Code(s): I10 - Essential (primary) hypertension Category: Medical Qualifiers: Hypertension type: primary hypertension Qualified Code(s): I10 - Essential (primary) hypertension Plan . Orders: Orders XR hip LT min 2V Today M25.552 - Pain in left hip Medications: Refilled tramadol cannot drive on med, cannot share med, can only take as prescribed 50 mg PO BID PRN 60 tabs 0RF pain 30 days
== END 2025-05-07 09:38 | disposition home or self-care (01) ==
PROVIDERS: PCP Nurse Practitioner Family; Visit Provider Nurse Practitioner Family
DX: M25.552 Pain in left hip (principal); I10 Essential (primary) hypertension

== ENCOUNTER 2025-05-07 08:54 | Outpatient (REF) | payer MEDICARE, SELFPAY ==
--- NOTE | ~2025-05-07 | XR_ITS ---
EXAMINATION: XR HIP, LEFT CLINICAL INFORMATION: M25.552 - Pain in left hip COMPARISON: None available. TECHNIQUE: Two views of the left hip. FINDINGS: No acute fracture. Normal alignment. Left femoral head is well seated within acetabulum. Left hip joint space is preserved. No abnormal soft tissue calcification. XR/XR hip LT min 2V IMPRESSION: No acute findings or significant degenerative changes of the left hip joint. Electronically signed by: Dede Hinton MD 05/07/2025 10:05 AM EDT
== END 2025-05-07 08:55 | disposition home or self-care (01) ==
LOC: HO.HMGCX 08:54
PROVIDERS: PCP Nurse Practitioner Family; Visit Provider Nurse Practitioner Family
DX: M25.552 Pain in left hip (principal); I10 Essential (primary) hypertension; Z79.1 Long term (current) use of non-steroidal anti-inflammatories (NSAID); Z91.81 History of falling
CPT/HCPCS: 73502; 96127; 99212

== ENCOUNTER → 2025-05-07 09:43 | Outpatient (BNV) | payer MEDICARE, SELFPAY | PROVIDERS: PCP Nurse Practitioner Family; Visit Provider Radiology Body Imaging | DX: M25.552 Pain in left hip (principal) | CPT/HCPCS: 73502 ==

== ENCOUNTER 2025-07-01 13:42 | Outpatient (AMB) | payer MEDICARE, SELFPAY ==
[2025-07-01 13:49] VITALS: BP 118/60; PULSE 70; O2SAT 98; BMI 39.1
--- NOTE | 2025-07-01 13:49 | HO.NEPHOV ---
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 She has been on multiple BP lowering medications and her blood pressure control has significantly improved under current management. Recently, microhematuria was identified during evaluations. Despite recommendations, the patient had refused a urology referral for cystoscopy. She has undergone a CT urogram which showed a benign renal cyst. She denies renal calculi, senosri neural deafness, flank pain, fever, or chills, edema, recurrent sore throat, epistaxis, hemoptysis, hemetemesis or melena. She does not have any macroscopic hematuria during any URI. She is not on any anticoagulation and does not have froth ot foam in the urine or proteinuria. Her last serum creatinine is stable. [facility] Medical History Gout Postmenopausal Bilateral Achilles tendonosis COPD (chronic obstructive pulmonary disease) Surgical History Hx of cholecystectomy History of total hysterectomy Family History Father No problems noted. Mother No problems noted. Sister No problems noted. Sister No problems noted. Son No problems noted. Daughter No problems noted. Social History Household Members: Spouse Housing: House Alcohol intake: never Patient Tobacco Use Status: Former Tobacco user Years Smoked: 14 years ago e-Cigarette/Vaping Use: Never Used Second Hand Smoke Exposure: No service: No Current occupational status: retired Current occupation: right hand dominant Cognitive needs: No Hearing needs: No Vision needs: Yes Review of Systems Const All systems reviewed & are unremarkable except as noted in HPI and below Physical Exam Vital Signs: Last Vital Signs Pulse 70 07/01/25 13:49 BP 118/60 07/01/25 13:49 Pulse Ox 98 07/01/25 13:49 Oxygen Delivery Method Room Air 07/01/25 13:49 BMI result Body Mass Index 39.1 Const General: comfortable and no acute distress Orientation/consciousness: patient oriented x3 HEENT Head: Yes normocephalic Mouth: Normal oral and palatal mucosa present Eyes EOM: EOMs intact bilaterally Neck Neck: Yes supple Resp Auscultation: clear to auscultation bilaterally Cardio Jugular venous distension: no JVD Rate: regular rate GI Palpation (GI): Soft to palpation Auscultation: normal bowel sounds General: Yes no CVA tenderness Back/Spine/Pelvis Back: no CVA tenderness Skin General skin exam: no rashes or lesions noted Neuro General: patient oriented x3 and moves all extremities Extrem General: Yes no pedal edema Results Reviewed Nephrology Results: Hgb, (12.0-16.0) 13.4 g/dl 04/16/25 WBC, (4.8-10.8) 6.1 X10*3/uL 04/16/25 Plt Count, (160-400) 186 X10*3/uL 04/16/25 Sodium, (135-145) 142 mmol/L 04/16/25 Potassium, (3.3-5.1) 4.7 mmol/L 04/16/25 Chloride, (96-108) 107 mmol/L 04/16/25 Carbon Dioxide, (22-29) 28 mmol/L 04/16/25 BUN, (9-16) 33 mg/dL H 04/16/25 Creatinine, (0.5-1.4) 1.28 mg/dL 04/16/25 Calcium, (8.4-10.2) 9.6 mg/dL 04/16/25 Urine Protein, (Neg-Trace) Negative mg/dL 04/16/25 Assessment & Plan Assessment & Plan (1) HTN (hypertension): Code(s): I10 - Essential (primary) hypertension Category: Medical Qualifiers: Hypertension type: primary hypertension Qualified Code(s): I10 - Essential (primary) hypertension (2) Microscopic hematuria: Code(s): R31.29 - Other microscopic hematuria Category: Medical (3) CKD stage 3a, GFR 45-59 ml/min: Code(s): N18.31 - Chronic kidney disease, stage 3a Category: Medical Plan She was found to have incidental microscopic hematuria but never had cystoscopy. She does not get recurrent UTI and does not have renal calculi. She does not have any family H/O microscopic hematuria , proteinuria, ESRD or renal transplantation. She has no flank pain, edema, sensori neural deafness, macroscopic hematuria or proteinuria. Differential diagnosis includes IgA, Alports or thin membrane disease. Her IgA levels are normal and her renal function is stable. She has a renal cyst which does not appear complex. She is on ACEI which she is tolerating well. Her BP needs to be maintained at goal and she should avoid NSAID's. I ordered follow up blood work. I did not initiate her on any new medications but explained all of the above. Answered all questions. F/U given Orders: Orders Protein Creatinine Ratio, Ur 6 Months I10 - Essential (primary) hypertension, N18.31 - Chronic kidney disease, stage 3a, R31.29 - Other microscopic hematuria UA and rflx microscopic 6 Months I10 - Essential (primary) hypertension, N18.31 - Chronic kidney disease, stage 3a, R31.29 - Other microscopic hematuria Electrolytes 6 Months I10 - Essential (primary) hypertension, N18.31 - Chronic kidney disease, stage 3a, R31.29 - Other microscopic hematuria Blood Urea Nitrogen 6 Months I10 - Essential (primary) hypertension, N18.31 - Chronic kidney disease, stage 3a, R31.29 - Other microscopic hematuria Creatinine 6 Months I10 - Essential (primary) hypertension, N18.31 - Chronic kidney disease, stage 3a, R31.29 - Other microscopic hematuria Coding Level of Care Code Est Pt Level 4 (94979) Diagnoses Primary hypertension I10 Hypertension type: primary hypertension Microscopic hematuria R31.29 CKD stage 3a, GFR 45-59 ml/min N18.31
== END 2025-07-01 14:11 | disposition home or self-care (01) ==
LOC: HO.HKA 13:43
PROVIDERS: PCP Nurse Practitioner Family; Visit Provider Internal Medicine Nephrology
DX: I10 Essential (primary) hypertension (principal); R31.29 Other microscopic hematuria; N18.31 Chronic kidney disease, stage 3a
CPT/HCPCS: 99214

== ENCOUNTER → 2025-07-01 13:42 | Outpatient (BNVA) | payer MEDICARE, SELFPAY | PROVIDERS: PCP Nurse Practitioner Family; Visit Provider Internal Medicine Nephrology | DX: I12.9 Hypertensive chronic kidney disease with stage 1 through stage 4 chronic kidney disease, or unspecified chronic kidney disease (principal); N18.31 Chronic kidney disease, stage 3a; R31.29 Other microscopic hematuria; Z87.891 Personal history of nicotine dependence | CPT/HCPCS: 99212 ==